=== PATIENT | female | born 1980 | race African-American/Black ===

== ENCOUNTER 2016-11-27 13:06 | Emergency (ER) | payer MEDICAID ==
--- NOTE | 2016-11-27 13:19 | ER Document Report ---
ED Medical Screen (RME) - General Stated Complaint: FELL/BACK/HIP PAIN Mode of Arrival: Ambulatory Information source: Patient Notes: pt states she fell yesterday in her kitchen landing on her back. Pt c/o low back pain. TRAVEL OUTSIDE OF THE [place] IN LAST 30 DAYS: No - Related Data Allergies/Adverse Reactions: meperidine HCl [From Demerol] Allergy (Intermediate, Verified 10/31/16 02:35) Hives Past Medical History - Past Medical History Cardiac Medical History: Reports: Hx Hypertension - Borderline Pulmonary Medical History: Reports: Hx Asthma, Hx Tuberculosis Endocrine Medical History: Reports: Hx Diabetes Mellitus Type 2, Hx Hypothyroidism Renal/ Medical History: Reports: Hx Kidney Stones GI Medical History: Reports: Hx Ulcer Past Surgical History: Reports: Hx Section - x1, Hx Gynecologic Surgery - D&C, Hx Thyroid Surgery - Thyroidectomy - Immunizations Immunizations up to date: Yes Hx Diphtheria, Pertussis, Tetanus Vaccination: Yes Physical Exam - General General appearance: Appears well, Alert - Back Back: Tender - left lower back pain
[2016-11-27] MEDS ORDERED: NAPROXEN 250 MG TABLET PO ONE (13:58)
--- NOTE | 2016-11-27 15:54 | ER Document Report ---
ED Fall - General Chief Complaint: Fall Stated Complaint: FELL/BACK/HIP PAIN Mode of Arrival: Ambulatory Information source: Patient Notes: 36-year-old Female presents to the emergency department complaining of lower back pain. Patient reports was walking in her kitchen yesterday afternoon when she slipped on wet floor landing on her left lower back. Reports initially did not have obvious injury however has noted increased pain to left mid and lower back and left hip. States pain is worse with movement and ambulation. Denies extremity weakness/numbness/tingling, saddle numbness, incontinence, fever, or urinary retention. TRAVEL OUTSIDE OF THE [place] IN LAST 30 DAYS: No - HPI Occurred: Yesterday Where: Home, Indoors Context: Slipped, Fell from standing Associated symptoms: None Location of injury/pain: Back Quality of pain: Achy Severity: Moderate Pain Level: 3 - Related data Allergies/Adverse Reactions: meperidine HCl [From Demerol] Allergy (Intermediate, Verified 11/27/16 13:20) Hives Past Medical History - General Information source: Patient - Social History Smoking Status: Never Smoker Chew tobacco use (# tins/day): No Frequency of alcohol use: None Drug Abuse: None Lives with: Family Family History: Reviewed & Not Pertinent, CAD, DM, Hypertension, Thyroid Disfunction Patient has suicidal ideation: No Patient has homicidal ideation: No - Past Medical History Cardiac Medical History: Reports: Hx Hypertension - Borderline Pulmonary Medical History: Reports: Hx Asthma, Hx Tuberculosis Endocrine Medical History: Reports: Hx Diabetes Mellitus Type 2, Hx Hypothyroidism Renal/ Medical History: Reports: Hx Kidney Stones GI Medical History: Reports: Hx Ulcer Past Surgical History: Reports: Hx Section - x1, Hx Gynecologic Surgery - D&C, Hx Thyroid Surgery - Thyroidectomy - Immunizations Immunizations up to date: Yes Hx Diphtheria, Pertussis, Tetanus Vaccination: Yes Review of Systems - Review of Systems Constitutional: No symptoms reported EENT: No symptoms reported Cardiovascular: No symptoms reported Respiratory: No symptoms reported Gastrointestinal: No symptoms reported Genitourinary: No symptoms reported Female Genitourinary: No symptoms reported Musculoskeletal: See HPI Skin: No symptoms reported Hematologic/Lymphatic: No symptoms reported Neurological/Psychological: No symptoms reported -: Yes All other systems reviewed and negative Physical Exam - Vital signs Vitals: Temp Pulse Resp BP Pulse Ox 98.0 F 69 21 H 139/76 H 99 01/07/17 13:20 11/27/16 13:20 11/27/16 13:20 11/27/16 13:20 11/27/16 13:20 Interpretation: Normal - General General appearance: Appears well, Alert In distress: None - HEENT Head: Normocephalic, Atraumatic Eyes: Normal Pupils: PERRL - Respiratory Respiratory status: No respiratory distress Chest status: Nontender Breath sounds: Normal Chest palpation: Normal - Cardiovascular Rhythm: Regular Heart sounds: Normal auscultation Murmur: No Pulses: Normal: Radial, Posterior tibial, Dorsalis pedis Normal capillary refill: Yes - Abdominal Inspection: Normal Distension: No distension Bowel sounds: Normal Tenderness: Nontender Organomegaly: No organomegaly - Back Back: Tender - Mild tenderness with palpation to left paraspinal musculature at lower thoracic and lumbar levels. Full range of motion without paresthesias or neurological deficits.. No: Normal, Nontender, Deformity/step-off, CVA tenderness, Vertebra tenderness, Scars, Scoliosis, Wounds, Other - Extremities General upper extremity: Normal inspection, Nontender, Normal color, Normal ROM , Normal strength, Normal temperature. No: Tender, Edema General lower extremity: Normal inspection, Nontender, Normal color, Normal ROM , Normal strength, Normal temperature, Normal weight bearing. No: Tender, Edema Hip: Tender - Mild tenderness to palpation to left lateral hip area. No instability, deformity, or bruising.. No: Normal, Nontender, Abrasion, Deformity, Dislocation, Ecchymosis, Instability, Laceration, Pain with ROM, Unable to bear weight, Other - Neurological Neuro grossly intact: Yes Cognition: Normal Orientation: AAOx4 [place] Coma Scale Eye Opening: Spontaneous [place] Coma Scale Verbal: Oriented [place] Coma Scale Motor: Obeys Commands [place] Coma Scale Total: 15 Speech: Normal Motor strength normal: LUE, RUE, LLE, RLE Sensory: Normal - Psychological Associated symptoms: Normal affect, Normal mood - Skin Skin Temperature: Warm Skin Moisture: Dry Skin Color: Normal Course - Re-evaluation Re-evalutation: 11/27/16 16:00 Patient hemodynamically stable, in no distress, afebrile. X-rays unremarkable. The patient presents with back pain without signs of spinal cord compression, cauda equina syndrome, infection, aneurysm, or other serious etiology. The patient is neurologically intact, independently and steadily ambulatory without paresthesias or neurological deficits. Given the extremely low risk of these diagnoses further testing and evaluation for these possibilities does not appear to be indicated at this time. Home care, follow-up with PCP, and ED return precautions discussed with patient who verbalized understanding and agrees with plan. - Vital Signs Vital signs: Temp Pulse Resp BP Pulse Ox 98.0 F 57 L 17 134/73 H 100 11/27/16 13:20 11/27/16 16:02 11/27/16 16:02 11/27/16 16:02 11/27/16 16:02 - Diagnostic Test Radiology reviewed: Image reviewed, Reports reviewed Discharge - Discharge Clinical Impression: Low back pain Qualifiers: Chronicity: acute Back pain laterality: left Sciatica presence: without sciatica Qualified Code(s): M54.5 - Low back pain Condition: Stable Disposition: HOME, SELF-CARE Additional Instructions: LOW BACK PAIN: Three out of every four people will have an episode of disabling back pain during their lifetime. Most commonly the pain is due to straining of the muscles and ligaments in the low back. Usual treatment includes: (1) Rest on a firm surface. Avoid lying on your stomach. (2) Ice pack the painful area. After a few days, gentle heat may be used intermittently to relax the area, or ice packs can be continued. (3) Medication may be needed -- muscle relaxers and antiinflammatory medicines are commonly used. (4) As the back improves, exercises are prescribed to strengthen the back and abdominal muscles. Your doctor will advise you on the proper care for your back at each stage in your recovery. You may be better in a few days -- or healing may take several weeks. If new symptoms of a "herniated disc" (radiation of pain, numbness, or tingling down the back of the leg or weakness in the leg) occur, you should be re-examined. Further testing may be necessary. ICE PACKS: Apply ice packs frequently against the painful area. Many different schedules are recommended, such as "20 minutes on, 20 minutes off" or "one hour ice, two hours rest." If you need to work, you may need to go longer between ice treatments. You should plan to have the area ice packed AT LEAST one fourth of the time. The ice should be applied over the wrap, tape, or splint, or over a layer of cloth -- not directly against the skin. Some ice bags have a built-in cloth and can be put directly on the skin. WARM PACKS: After approximately two days, apply gentle heat (such as a heating pad or hot water bottle) for about 20 to 30 minutes about every two hours -- at least four times daily. Warmth and elevation will help you make a more rapid recovery , and will ease the pain considerably. Do not use HOT heat, and never apply heat for longer than 30 minutes. The continuous heat can invisibly damage skin and muscles -- even when no burn is seen on the surface. Damaged muscles can make you MORE sore. MUSCLE RELAXERS: Muscle relaxing medications are usually prescribed for acute muscle spasm or injury to the neck and back. They are often combined with antiinflammatory pain medication for increased relief. You may stop the muscle relaxer when the pain and stiffness have improved. Start the medication again if spasms recur. Muscle relaxers may cause drowsiness, especially with the first dose. Do not operate machinery or drive while under the effects of the medication. Most muscle relaxers last up to 24 hours. Do not combine the medication with alcohol. Anti-Inflammatory Medication You have received a prescription for an antiinflammatory agent. This is an excellent, safe drug for pain control. In addition, it has potent antiinflammatory effects which are beneficial, especially in the treatment of injuries, arthritis, or tendonitis. It's best to take this medicine with food. Persons with ulcer disease or allergy to aspirin should notify their physician of this before taking this drug. Take the medication exactly as prescribed. Don't take additional doses unless instructed to do so by your doctor. If you develop wheezing, shortness of breath, hives, faintness, stomach pain, vomiting, or dark black stools, return for re-evaluation at once. FOLLOW-UP CARE: Follow-up with your primary care provider on Tuesday as discussed. Return to the Emergency Department for any worsening symptoms or concerns. Prescriptions: Methocarbamol [Robaxin 500 mg Tablet] 500 mg PO Q8HP PRN #10 tablet PRN Reason: Naproxen [Naprosyn 375 Mg Tablet] 375 mg PO BIDP PRN #10 tablet PRN Reason: Forms: Elevated Blood Pressure, Return to Work
[2016-11-27 16:05] VITALS: BP 134/73
== END 2016-11-27 16:02 | disposition home or self-care (01) ==
LOC: ER 13:06
DX: M54.5 Low back pain (principal); M54.9 Dorsalgia, unspecified; M25.552 Pain in left hip; W19.XXXA Unspecified fall, initial encounter
CPT/HCPCS: 99283; 73502; 72110; 72070; J3490

== ENCOUNTER 2017-05-10 17:39 | Emergency (ER) | payer MEDICAID ==
[2017-05-10 17:52] VITALS: BP 139/77
--- NOTE | 2017-05-10 18:32 | ER Document Report ---
ED Medical Screen (RME) - General Chief Complaint: R flank pain, burning with urination Stated Complaint: RIGHT FLANK PAIN,NAUSEA Time Seen by Provider: 05/10/17 18:25 Notes: 36-year-old female patient reports onset Tuesday morning burning with urination , then about noon developed fever of 102. Fever burning continued on Tuesday. Now she has low back pain. Mentioned possible kidney stones. She has had several abdomen and pelvis CT scans over the years that did not show stones but did show constipation. I have greeted and performed a rapid initial assessment of this patient. A comprehensive ED assessment and evaluation of the patient, analysis of test results and completion of the medical decision making process will be conducted by additional ED providers. TRAVEL OUTSIDE OF THE [place] IN LAST 30 DAYS: No - Related Data Allergies/Adverse Reactions: meperidine HCl [From Demerol] Allergy (Intermediate, Verified 11/27/16 13:20) Hives Past Medical History - Past Medical History Cardiac Medical History: Reports: Hx Hypertension - Borderline Pulmonary Medical History: Reports: Hx Asthma, Hx Tuberculosis Endocrine Medical History: Reports: Hx Diabetes Mellitus Type 2, Hx Hypothyroidism Renal/ Medical History: Reports: Hx Kidney Stones. Denies: Hx Peritoneal Dialysis GI Medical History: Reports: Hx Ulcer Past Surgical History: Reports: Hx Section - x1, Hx Gynecologic Surgery - D&C, Hx Thyroid Surgery - Thyroidectomy - Immunizations Immunizations up to date: Yes Hx Diphtheria, Pertussis, Tetanus Vaccination: Yes Physical Exam - Vital signs Vitals: Temp Pulse Resp BP Pulse Ox 98.2 F 57 L 18 139/77 H 98 05/10/17 17:47 05/10/17 17:47 05/10/17 17:47 05/10/17 17:47 05/10/17 17:47 Course - Vital Signs Vital signs: Temp Pulse Resp BP Pulse Ox 98.2 F 57 L 18 139/77 H 98 05/10/17 17:47 05/10/17 17:47 05/10/17 17:47 05/10/17 17:47 05/10/17 17:47
[2017-05-10 19:25] LABS: APPEARANCE,URINE SLIGHTLY-CLOUDY; BILIRUBIN,URINE NEGATIVE (NEGATIVE); GLUCOSE, URINE NEGATIVE (NEGATIVE); KETONES,URINE NEGATIVE (NEGATIVE); LEUKOCYTE ESTERASE,URINE TRACE (NEGATIVE); NITRITE,URINE NEGATIVE (NEGATIVE); PROTEIN,URINE NEGATIVE (NEGATIVE); URINE SPECIFIC GRAVITY 1.032
[2017-05-10] MEDS ORDERED: KETOROLAC TROMETHAMINE 60 MG/2 ML SDV IM ONE (19:28)
[2017-05-10] MEDS ORDERED: ONDANSETRON 4 MG TAB.RAPDIS PO ONE (19:30)
--- NOTE | 2017-05-10 19:32 | ER Document Report ---
HPI - HPI Patient complains to provider of: right flank pain, burning with urination Onset: Last week Onset/Duration: Gradual Quality of pain: Stabbing, Throbbing Severity: Severe Pain Level: 5 Context: Patient states she started having burning with urination and frequency on Tuesday. States she did have a fever on Tuesday and Tuesday, but none since. Patient reports nausea but no vomiting. Thinks she might have a kidney stone. Associated Symptoms: Fever, Nausea. denies: Vomiting Exacerbated by: Movement Relieved by: Denies Similar symptoms previously: Yes Recently seen / treated by doctor: No - ROS ROS below otherwise negative: Yes Systems Reviewed and Negative: Yes All other systems reviewed and negative - CONSTITUTIONAL Constitutional: REPORTS: Fever - EENT EENT: DENIES: Congestion - NEURO Neurology: DENIES: Headache - CARDIOVASCULAR Cardiovascular: DENIES: Chest pain - RESPIRATORY Respiratory: DENIES: Trouble Breathing - GASTROINTESTINAL Gastrointestinal: REPORTS: Abdominal Pain - lower abd over bladder, Nausea - URINARY Urinary: REPORTS: Dysuria, Urgency, Frequency - REPRODUCTIVE Reproductive: DENIES: : - MUSCULOSKELETAL Musculoskeletal: REPORTS: Back Pain - Flank. DENIES: Extremity pain - DERM Skin Color: Normal Skin Problems: None Past Medical History - General Information source: Patient - Social History Smoking Status: Never Smoker Frequency of alcohol use: None Drug Abuse: None Lives with: Spouse/Significant other Family History: Reviewed & Not Pertinent, CAD, DM, Hypertension, Thyroid Disfunction - Past Medical History Cardiac Medical History: Reports: Hx Hypertension - Borderline Pulmonary Medical History: Reports: Hx Asthma, Hx Tuberculosis Endocrine Medical History: Reports: Hx Diabetes Mellitus Type 2, Hx Hypothyroidism Renal/ Medical History: Reports: Hx Kidney Stones GI Medical History: Reports: Hx Ulcer Past Surgical History: Reports: Hx Section - x1, Hx Gynecologic Surgery - D&C, Hx Thyroid Surgery - Thyroidectomy - Immunizations Immunizations up to date: Yes Hx Diphtheria, Pertussis, Tetanus Vaccination: Yes Vertical Provider Document - CONSTITUTIONAL Agree With Documented VS: Yes Exam Limitations: No Limitations General Appearance: WD/WN, Mild Distress - INFECTION CONTROL TRAVEL OUTSIDE OF THE [place] IN LAST 30 DAYS: No - HEENT HEENT: Atraumatic, Normocephalic - RESPIRATORY Respiratory: Breath Sounds Normal, No Respiratory Distress O2 Sat by Pulse Oximetry: 98 - CARDIOVASCULAR Cardiovascular: Regular Rate, Regular Rhythm - GI/ABDOMEN Gastrointestinal: Abdomen Soft, Abdomen Tender - Pubic, Normal Bowel Sounds - BACK Back: CVA Tenderness-Right. negative: CVA Tenderness-Left - MUSCULOSKELETAL/EXTREMETIES Musculoskeletal/Extremeties: MAEW - NEURO Level of Consciousness: Awake, Alert, Appropriate - DERM Integumentary: Warm, Dry, No Rash Course - Re-evaluation Re-evalutation: 05/10/17 20:43 Labs were normal and discussed with patient. Patient informed a urine culture will be placed usually resulting in 3 days - Vital Signs Vital signs: Temp Pulse Resp BP Pulse Ox 98.2 F 57 L 18 139/77 H 98 05/10/17 17:47 05/10/17 17:47 05/10/17 17:47 05/10/17 17:47 05/10/17 17:47 - Laboratory Result Diagrams: 05/10/17 20:10 05/10/17 20:10 Laboratory results interpreted by me: 05/10/17 18:40 Urine Urobilinogen 2.0 H Ur Leukocyte Esterase TRACE H Discharge - Discharge Clinical Impression: Dysuria, Right flank pain Condition: Good Disposition: HOME, SELF-CARE Instructions: Toradol Injection ([facility]) Additional Instructions: Take all medications as prescribed push Fluids, you were a little dehydrated tonight tylenol or Motrin as needed for discomfort And follow-up with your primary care doctor this week for recheck urine Culture is pending, usually takes 3 days for final results Return if worsens Prescriptions: Ketorolac Tromethamine [Toradol 10 mg Tablet] 10 mg PO Q6HP PRN #20 tablet PRN Reason: Ciprofloxacin HCl [Cipro 500 mg Tablet] 500 mg PO BID #10 tablet Phenazopyridine HCl [Pyridium 200 mg Tablet] 200 mg PO TID PRN #15 tablet PRN Reason: Forms: Return to Work
[2017-05-10] MEDS ORDERED: NORMAL SALINE 1000 ML 1,000 ML IV ONE (19:45)
[2017-05-10 20:20] LABS: ABSOLUTE BASOPHILS # (AUTO) 0.1 10^3/uL (0.0-0.2); ABSOLUTE EOSINOPHILS # (AUTO) 0.2 10^3/uL (0.0-0.6); ABSOLUTE LYMPHOCYTES (AUTO) 2.4 10^3/uL (0.5-4.7); ABSOLUTE MONOCYTES (AUTO) 0.4 10^3/uL (0.1-1.4); ABSOLUTE NEUT (AUTO) 2.9 10^3/uL (1.7-8.2); BASOPHILS % (AUTO) 0.9 % (0-2); EOSINOPHILS % (AUTO) 3.5 % (0-6); HEMATOCRIT 40.8 % (36.0-47.0); HEMOGLOBIN 13.2 g/dL (12.0-15.5); HGB HCT DIFFERENCE -1.2; MEAN CORPUSCULAR HEMOGLOBIN 25.9 pg (27.0-33.4); MEAN CORPUSCULAR HGB CONC 32.4 g/dL (32.0-36.0); MEAN CORPUSCULAR VOLUME 80 fl (80-97); MONOCYTES % (AUTO) 6.8 % (3-13); RED CELL DISTRIBUTION WIDTH 13.6 % (11.5-14.0); SEGMENTED NEUTROPHILS % (AUTO) 48.8 % (42-78); WHITE BLOOD COUNT 5.9 10^3/uL (4.0-10.5)
[2017-05-10] MEDS ORDERED: CIPROFLOXACIN HCL 500 MG TABLET PO ONE (20:35)
[2017-05-10 20:37] LABS: ALANINE AMINOTRANSFERASE 23 U/L (9-52); ALBUMIN 4.1 g/dL (3.5-5.0); ALKALINE PHOSPHATASE 71 U/L (38-126); ANION GAP 13 (5-19); ASPARTATE AMINO TRANSFERASE 20 U/L (14-36); BILIRUBIN,DIRECT 0.3 mg/dL (0.0-0.4); BILIRUBIN,TOTAL 0.5 mg/dL (0.2-1.3); BLOOD UREA NITROGEN 12 mg/dL (7-20); CALCIUM 9.3 mg/dL (8.4-10.2); CARBON DIOXIDE 24 mmol/L (22-30); CHLORIDE 105 mmol/L (98-107); CREATININE RESULT 0.77 mg/dL (0.52-1.25); GLUCOSE 96 mg/dL (75-110); SODIUM 141.6 mmol/L (137-145); TOTAL PROTEIN 7.5 g/dL (6.3-8.2)
== END 2017-05-10 22:09 | disposition home or self-care (01) ==
LOC: ER 17:39
DX: R30.0 Dysuria (principal); R10.30 Lower abdominal pain, unspecified; R35.0 Frequency of micturition; R11.0 Nausea; R39.15 Urgency of urination; M54.9 Dorsalgia, unspecified; J45.909 Unspecified asthma, uncomplicated; Z87.442 Personal history of urinary calculi; Z87.19 Personal history of other diseases of the digestive system
CPT/HCPCS: 99284; 96372; 96360; 36415; 87086; 85025; 81025; 80053; 81001; J3490; J1885; S0119; J7030

== ENCOUNTER 2017-08-31 08:51 | Emergency (ER) | payer MEDICAID ==
[2017-08-31] MEDS ORDERED: LIDOCAINE 1% INJ-PF (10 MG/ML) 30 ML SDV INJ ONE (10:57)
[2017-08-31] MEDS ORDERED: ACETAMINOPHEN 325 MG TABLET PO ONE (11:30)
--- NOTE | 2017-08-31 12:07 | ER Document Report ---
ED General - General Chief Complaint: Fall Injury Stated Complaint: FALL POSSIBLE ABSCESS UNDER RIGHT ARM Time Seen by Provider: 08/31/17 10:04 Notes: Patient is a 37-year-old female presents emergency department complaining of low back pain and abscess. Patient states that she has had low back pain ever since she sustained a fall at [facility] last evening. Patient states that she slipped and landed on her bottom. States she woke up this morning with right lower back pain with right sciatica. She denies any urinary/stool incontinence , saddle anesthesia. Been able to ambulate without any assistance or difficulty. States she has not taken anything for pain. Regarding the abscess. Patient has a right axilla abscess that she states she has had for about a week that has been tender to touch otherwise she denies any fevers, chills, drainage. States she does have a history of hidradenitis supprativa TRAVEL OUTSIDE OF THE [place] IN LAST 30 DAYS: No - Related Data Allergies/Adverse Reactions: meperidine HCl [From Demerol] Allergy (Intermediate, Verified 08/31/17 09:11) Tinoes Past Medical History - Social History Smoking Status: Never Smoker Frequency of alcohol use: None Drug Abuse: None Family History: Reviewed & Not Pertinent, CAD, DM, Hypertension, Thyroid Disfunction - Past Medical History Cardiac Medical History: Reports: Hx Hypertension - Borderline Pulmonary Medical History: Reports: Hx Asthma, Hx Tuberculosis Endocrine Medical History: Reports: Hx Diabetes Mellitus Type 2, Hx Hypothyroidism Renal/ Medical History: Reports: Hx Kidney Stones. Denies: Hx Peritoneal Dialysis GI Medical History: Reports: Hx Ulcer Past Surgical History: Reports: Hx Section - x1, Hx Gynecologic Surgery - D&C, Hx Thyroid Surgery - Thyroidectomy - Immunizations Immunizations up to date: Yes Hx Diphtheria, Pertussis, Tetanus Vaccination: Yes Review of Systems - Review of Systems Constitutional: No symptoms reported Cardiovascular: No symptoms reported Respiratory: No symptoms reported Musculoskeletal: See HPI Skin: See HPI Neurological/Psychological: No symptoms reported -: Yes All other systems reviewed and negative Physical Exam - Vital signs Vitals: Temp Pulse Resp BP Pulse Ox 98.1 F 59 L 15 136/89 H 100 08/31/17 09:08 08/31/17 09:08 08/31/17 09:08 08/31/17 09:08 08/31/17 09:08 - Notes Notes: PHYSICAL EXAM GENERAL: Alert, interacts well. HEAD: Normocephalic, atraumatic. LUNGS: Clear to auscultation bilaterally, no wheezes, rales, or rhonchi. No respiratory distress. HEART: Regular rate and rhythm. No murmurs, gallops, or rubs. ABDOMEN: Soft, nondistended, nontender. No guarding, rebound, or rigidity.. Bowel sounds present in all 4 quadrants. EXTREMITIES: Moves all 4 extremities spontaneously. No edema, radial and dorsalis pedis pulses 2/4 bilaterally. No cyanosis. Back: Tenderness to palpation over the right paramusculature of the lumbar spine. No evidence of spinous process tenderness, deformities, step-offs. Gait stable. NEUROLOGICAL: Alert and oriented x4. Normal speech. PSYCH: Normal affect, normal mood. SKIN: Warm, dry, normal turgor. No rashes. .right axilla with a 1 cm inflamed area that is tender to touch with central fluctuance, No surrounding cellulitis Course - Re-evaluation Re-evalutation: 08/31/17 10:30 The patient presents with low back pain without signs of spinal cord compression , cauda equina syndrome, infection, aneurysm, or other serious etiology. The patient is neurologically intact. Given the extremely low risk of these diagnoses further testing and evaluation for these possibilities does not appear to be indicated at this time. The patient has been instructed to return if the symptoms worsen or change in any way. Area of the right axilla with I&D at the bedside for minimal material removed. Patient initiated on Bactrim and to follow-up with primary care. Patient agrees with plan - Vital Signs Vital signs: Temp Pulse Resp BP Pulse Ox 98.3 F 55 L 18 132/75 H 100 08/31/17 12:46 08/31/17 12:46 08/31/17 12:46 08/31/17 12:46 08/31/17 12:46 - Diagnostic Test Radiology reviewed: Image reviewed, Reports reviewed Discharge - Discharge Clinical Impression: Abscess Fall Qualifiers: Encounter type: initial encounter Qualified Code(s): W19.XXXA - Unspecified fall, initial encounter Condition: Good Disposition: HOME, SELF-CARE Instructions: Abscess ([facility]), Post Incision and Drainage, Trimethoprim-Sulfa ( [facility]) Additional Instructions: LOW BACK PAIN: Three out of every four people will have an episode of disabling back pain during their lifetime. Most commonly the pain is due to straining of the muscles and ligaments in the low back. Usual treatment includes: (1) Rest on a firm surface. Avoid lying on your stomach. (2) Ice pack the painful area. After a few days, gentle heat may be used intermittently to relax the area, or ice packs can be continued. (3) Medication may be needed -- muscle relaxers and antiinflammatory medicines are commonly used. (4) As the back improves, exercises are prescribed to strengthen the back and abdominal muscles. Your doctor will advise you on the proper care for your back at each stage in your recovery. You may be better in a few days -- or healing may take several weeks. If new symptoms of a "herniated disc" (radiation of pain, numbness, or tingling down the back of the leg or weakness in the leg) occur, you should be re-examined. Further testing may be necessary. MUSCLE RELAXERS: Muscle relaxing medications are usually prescribed for acute muscle spasm or injury to the neck and back. They are often combined with antiinflammatory pain medication for increased relief. You may stop the muscle relaxer when the pain and stiffness have improved. Start the medication again if spasms recur. Muscle relaxers may cause drowsiness, especially with the first dose. Do not operate machinery or drive while under the effects of the medication. Most muscle relaxers last up to 24 hours. Do not combine the medication with alcohol. ICE PACKS: Apply ice packs frequently against the painful area. Many different schedules are recommended, such as "20 minutes on, 20 minutes off" or "one hour ice, two hours rest." If you need to work, you may need to go longer between ice treatments. You should plan to have the area ice packed AT LEAST one fourth of the time. The ice should be applied over the wrap, tape, or splint, or over a layer of cloth -- not directly against the skin. Some ice bags have a built-in cloth and can be put directly on the skin. WARM PACKS: After approximately two days, apply gentle heat (such as a heating pad or hot water bottle) for about 20 to 30 minutes about every two hours -- at least four times daily. Warmth and elevation will help you make a more rapid recovery , and will ease the pain considerably. Do not use HOT heat, and never apply heat for longer than 30 minutes. The continuous heat can invisibly damage skin and muscles -- even when no burn is seen on the surface. Damaged muscles can make you MORE sore. FOLLOW-UP CARE: If you have been referred to a physician for follow-up care, call the physician s office for an appointment as you were instructed or within the next two days. If you experience worsening or a significant change in your symptoms, notify the physician immediately or return to the Emergency Department at any time for re-evaluation. Prescriptions: Cyclobenzaprine HCl [Flexeril 10 mg Tablet] 10 mg PO TIDP PRN #15 tab PRN Reason: Ibuprofen [Motrin 800 mg Tablet] 800 mg PO Q8H PRN #30 tab PRN Reason: Sulfamethoxazole/Trimethoprim [Bactrim Ds Tablet] 1 each PO BID #10 tablet Forms: Special Work Note, Return to Work
--- NOTE | 2017-08-31 12:22 | RADIOLOGY REPORT (SQ) ---
EXAM DESCRIPTION: L SPINE WHOLE COMPLETED DATE/TIME: 08/31/2017 11:58 am REASON FOR STUDY: fall COMPARISON: 11/27/2016 NUMBER OF VIEWS: Five views including obliques. TECHNIQUE: AP, lateral, oblique, and sacral radiographic images acquired of the lumbar spine. LIMITATIONS: None. FINDINGS: MINERALIZATION: Normal. SEGMENTATION: Normal. No transitional anatomy. ALIGNMENT: Normal. VERTEBRAE: Maintained height. No fracture or worrisome bone lesion. DISCS: The disc spaces are fairly well maintained. There are some minimal marginal osteophytes. POSTERIOR ELEMENTS: Pedicles and facets are intact. No pars defect or posterior arch defects. HARDWARE: None in the spine. PARASPINAL SOFT TISSUES: Normal. PELVIS: Intact as visualized. No fractures or worrisome bone lesions. SI joints intact. OTHER: No other significant finding. IMPRESSION: No acute abnormality in the lumbosacral spine. Mild spondylosis. TECHNICAL DOCUMENTATION: JOB ID: [id number] [employer]- All Rights Reserved
[2017-08-31 12:48] VITALS: BP 132/75
== END 2017-08-31 12:47 | disposition home or self-care (01) ==
LOC: ER 08:51
PROC: 0H9BXZZ Drainage of Right Upper Arm Skin, External Approach (ICD-10-PCS; principal; 2017-08-31)
DX: L02.413 Cutaneous abscess of right upper limb (principal); M54.5 Low back pain; W19.XXXA Unspecified fall, initial encounter
CPT/HCPCS: 99283; 72110; 10060; J3490 ×2

== ENCOUNTER 2017-11-21 15:16 | Emergency (ER) | payer MEDICAID ==
[2017-11-21 15:27] VITALS: BP 144/91
--- NOTE | 2017-11-21 15:57 | ER Document Report ---
HPI - HPI Patient complains to provider of: abscess Pain Level: 5 Context: Patient is a 37-year-old female presents emergency department with left axilla swelling and tenderness for the past 2 days. Patient admits to history of abscesses and is due to follow-up with surgery as an outpatient. She denies any fevers or chills or active drainage. - REPRODUCTIVE Reproductive: DENIES: : Past Medical History - Social History Smoking Status: Never Smoker Family History: Reviewed & Not Pertinent, CAD, DM, Hypertension, Thyroid Disfunction - Past Medical History Cardiac Medical History: Reports: Hx Hypertension - Borderline Pulmonary Medical History: Reports: Hx Asthma, Hx Tuberculosis Endocrine Medical History: Reports: Hx Diabetes Mellitus Type 2, Hx Hypothyroidism Renal/ Medical History: Reports: Hx Kidney Stones. Denies: Hx Peritoneal Dialysis GI Medical History: Reports: Hx Ulcer Past Surgical History: Reports: Hx Section - x1, Hx Gynecologic Surgery - D&C, Hx Thyroid Surgery - Thyroidectomy - Immunizations Immunizations up to date: Yes Hx Diphtheria, Pertussis, Tetanus Vaccination: Yes Vertical Provider Document - CONSTITUTIONAL Agree With Documented VS: Yes Notes: PHYSICAL EXAM GENERAL: Alert, interacts well. EXTREMITIES: Moves all 4 extremities spontaneously. No edema, radial and dorsalis pedis pulses 2/4 bilaterally. No cyanosis. NEUROLOGICAL: Alert and oriented x4. Normal speech. PSYCH: Normal affect, normal mood. SKIN: Warm, dry, normal turgor. No rashes left axilla with a palpable swollen tender area without any overlying induration or erythema measuring approximately 2 cm in diameter. - INFECTION CONTROL TRAVEL OUTSIDE OF THE [place] IN LAST 30 DAYS: No - RESPIRATORY O2 Sat by Pulse Oximetry: 100 Course - Re-evaluation Re-evalutation: 11/21/17 16:42 Patient is a 37-year-old female is hemodynamically stable, no acute distress and afebrile. Patient does have a history of type 2 diabetes. Incision and drainage was done at the bedside for approximately 3 cc of purulent fluid. Patient initiated on antibiotic and told to follow-up with primary care and to follow through on her referral to surgery For outpatient evaluation of hidradenitis - Vital Signs Vital signs: Temp Pulse Resp BP Pulse Ox 97.5 F 78 18 144/91 H 100 11/21/17 15:25 11/21/17 15:25 11/21/17 15:25 11/21/17 15:25 11/21/17 15:25 Discharge - Discharge Clinical Impression: Abscess Condition: Good Disposition: HOME, SELF-CARE Instructions: Abscess ([facility]), Cephalexin ([facility]), Post Incision and Drainage Prescriptions: Cephalexin Monohydrate [Keflex 500 mg Capsule] 500 mg PO Q6H 5 Days capsule Referrals: OLEKSANDR BUSTAMANTE MD [ACTIVE STAFF] - Follow up as needed
[2017-11-21] MEDS ORDERED: CEPHALEXIN 500 MG CAPSULE PO ONE (16:43)
== END 2017-11-21 17:11 | disposition home or self-care (01) ==
LOC: ER 15:16
DX: L02.412 Cutaneous abscess of left axilla (principal); E11.9 Type 2 diabetes mellitus without complications; J45.909 Unspecified asthma, uncomplicated
CPT/HCPCS: 99283

== ENCOUNTER 2017-11-28 16:52 | Emergency (ER) | payer MEDICAID ==
[2017-11-28 18:26] LABS: ABSOLUTE EOSINOPHILS # (AUTO) 0.1 10^3/uL (0.0-0.6); ABSOLUTE LYMPHOCYTES (AUTO) 2.7 10^3/uL (0.5-4.7); ABSOLUTE MONOCYTES (AUTO) 0.7 10^3/uL (0.1-1.4); ABSOLUTE NEUT (AUTO) 4.5 10^3/uL (1.7-8.2); APPEARANCE,URINE CLEAR; BASOPHILS % (AUTO) 0.6 % (0-2); BILIRUBIN,URINE NEGATIVE (NEGATIVE); COLOR,URINE YELLOW; EOSINOPHILS % (AUTO) 1.1 % (0-6); GLUCOSE, URINE NEGATIVE (NEGATIVE); KETONES,URINE NEGATIVE (NEGATIVE); LEUKOCYTE ESTERASE,URINE TRACE (NEGATIVE); LYMPHOCYTES % (AUTO) 33.7 % (13-45); MEAN CORPUSCULAR HEMOGLOBIN 26.3 pg (27.0-33.4); MEAN CORPUSCULAR HGB CONC 32.5 g/dL (32.0-36.0); MEAN CORPUSCULAR VOLUME 81 fl (80-97); MONOCYTES % (AUTO) 8.9 % (3-13); NITRITE,URINE NEGATIVE (NEGATIVE); PLATELET COUNT 280 10^3/uL (150-450); PROTEIN,URINE NEGATIVE (NEGATIVE); RED BLOOD COUNT 5.33 10^6/uL (3.72-5.28); RED CELL DISTRIBUTION WIDTH 13.1 % (11.5-14.0); SEGMENTED NEUTROPHILS % (AUTO) 55.7 % (42-78); TOTAL CELLS COUNTED % (AUTO) 100 %; URINE SPECIFIC GRAVITY 1.013; UROBILINOGEN,URINE NEGATIVE mg/dL (<2.0)
[2017-11-28 18:41] LABS: ALANINE AMINOTRANSFERASE 29 U/L (9-52); ALBUMIN 4.6 g/dL (3.5-5.0); ALKALINE PHOSPHATASE 74 U/L (38-126); ANION GAP 12 (5-19); ASPARTATE AMINO TRANSFERASE 18 U/L (14-36); BILIRUBIN,DIRECT 0.2 mg/dL (0.0-0.4); BILIRUBIN,TOTAL 0.3 mg/dL (0.2-1.3); BLOOD UREA NITROGEN 10 mg/dL (7-20); CALCIUM 10.2 mg/dL (8.4-10.2); CARBON DIOXIDE 31 mmol/L (22-30); CHLORIDE 100 mmol/L (98-107); GLUCOSE 82 mg/dL (75-110); POTASSIUM 4.3 mmol/L (3.6-5.0); SODIUM 142.8 mmol/L (137-145); TOTAL PROTEIN 7.8 g/dL (6.3-8.2)
--- NOTE | 2017-11-28 19:21 | ER Document Report ---
ED Cardiac - General Chief Complaint: Chest Pain Stated Complaint: CHEST PAIN Time Seen by Provider: 11/28/17 17:42 Mode of Arrival: Ambulatory Information source: Patient Notes: Patient states that she is having some substernal chest pain. It is sharp. It lasts 5-10 minutes at a time. She states it is worse with movement and better with rest. There is no sniffing and radiation. No nausea or significant shortness of breath. No cough cold or congestion. She denies any significant family history. She denies any current hormone use. She is not a smoker. She has no history of hypertension. She has no previous cardiac evaluation. TRAVEL OUTSIDE OF THE [place] IN LAST 30 DAYS: No - Related Data Allergies/Adverse Reactions: meperidine HCl [From Demerol] Allergy (Intermediate, Verified 08/31/17 09:11) Hives Past Medical History - Social History Smoking Status: Never Smoker Frequency of alcohol use: Occasional Drug Abuse: None Lives with: Family Family History: Reviewed & Not Pertinent, CAD, DM, Hypertension, Thyroid Disfunction Patient has suicidal ideation: No Patient has homicidal ideation: No - Past Medical History Cardiac Medical History: Reports: Hx Hypertension - Borderline Pulmonary Medical History: Reports: Hx Asthma, Hx Tuberculosis Endocrine Medical History: Reports: Hx Diabetes Mellitus Type 2, Hx Hypothyroidism Renal/ Medical History: Reports: Hx Kidney Stones. Denies: Hx Peritoneal Dialysis GI Medical History: Reports: Hx Ulcer Past Surgical History: Reports: Hx Section - x1, Hx Gynecologic Surgery - D&C, Hx Thyroid Surgery - Thyroidectomy - Immunizations Immunizations up to date: Yes Hx Diphtheria, Pertussis, Tetanus Vaccination: Yes Review of Systems - Review of Systems Constitutional: denies: Chills, Fever Cardiovascular: Chest pain. denies: Palpitations Respiratory: denies: Cough, Short of breath Gastrointestinal: denies: Diarrhea, Vomiting -: Yes All other systems reviewed and negative Physical Exam - Vital signs Vitals: Temp Pulse Resp BP Pulse Ox 97.8 F 77 18 142/87 H 98 11/28/17 17:12 11/28/17 17:12 11/28/17 17:12 11/28/17 17:12 11/28/17 17:12 Interpretation: Hypertensive - General General appearance: Appears well, Alert - HEENT Head: Normocephalic, Atraumatic Eyes: Normal Pupils: PERRL - Respiratory Respiratory status: No respiratory distress Chest status: Nontender Breath sounds: Normal Chest palpation: Normal - Cardiovascular Rhythm: Regular Heart sounds: Normal auscultation Murmur: No - Abdominal Inspection: Normal Distension: No distension Bowel sounds: Normal Tenderness: Nontender Organomegaly: No organomegaly - Back Back: Normal, Nontender - Extremities General upper extremity: Normal inspection, Nontender, Normal color, Normal ROM , Normal temperature General lower extremity: Normal inspection, Nontender, Normal color, Normal ROM , Normal temperature, Normal weight bearing. No: Carina's sign - Neurological Neuro grossly intact: Yes Cognition: Normal Orientation: AAOx4 [place] Coma Scale Eye Opening: Spontaneous [place] Coma Scale Verbal: Oriented [place] Coma Scale Motor: Obeys Commands Valencia Coma Scale Total: 15 Speech: Normal Motor strength normal: LUE, RUE, LLE, RLE Sensory: Normal - Psychological Associated symptoms: Normal affect, Normal mood - Skin Skin Temperature: Warm Skin Moisture: Dry Skin Color: Normal Course - Re-evaluation Re-evalutation: 11/28/17 19:19 HEART scpre of 2. will rec outpt follow up - Vital Signs Vital signs: Temp Pulse Resp BP Pulse Ox 97.8 F 77 18 142/87 H 98 11/28/17 17:12 11/28/17 17:12 11/28/17 17:12 11/28/17 17:12 11/28/17 17:12 - Laboratory Result Diagrams: 11/28/17 17:50 11/28/17 17:50 Laboratory results interpreted by me: 11/28/17 11/28/17 11/28/17 17:50 17:50 17:50 RBC 5.33 H MCH 26.3 L Carbon Dioxide 31 H Ur Leukocyte Esterase TRACE H - EKG Interpretation by Az EKG shows normal: Sinus rhythm Rate: Normal Rhythm: NSR Sheridan/QRS: No: Right axis deviation When compared to previous EKG there are: Changes noted - some new t wave inversion Discharge - Discharge Clinical Impression: Acute chest pain Condition: Stable Disposition: HOME, SELF-CARE Instructions: Chest Pain of Unclear Cause ([facility]) Additional Instructions: Your blood pressure is elevated. Please have this rechecked within 1 week by your doctor. Your EKG has some nonspecific changes since your previous EKG. There are no other findings that would warrant a further emergency department or inpatient evaluation. However it is recommended that you follow-up with your family physician or a manager site as an outpatient and discuss a cardiac stress test with either your primary care provider or the manager site. Forms: Elevated Blood Pressure, Return to Work Referrals: NOLAN CHUNG MD [ACTIVE STAFF] - Follow up in 3-5 days
[2017-11-28 19:46] VITALS: BP 124/73
--- NOTE | 2017-11-29 06:53 | EKG REPORT ---
SEVERITY:- ABNORMAL ECG - SINUS RHYTHM BORDERLINE LEFT AXIS DEVIATION NONSPECIFIC T ABNORMALITIES, ANTERIOR LEADS , NEW SINCE 08/23/16 EKG : Confirmed by: Kendell Camilo MD 29-Nov-2017 06:52:49
== END 2017-11-28 19:50 | disposition home or self-care (01) ==
LOC: ER 16:52
DX: R07.9 Chest pain, unspecified (principal); E11.9 Type 2 diabetes mellitus without complications; E03.9 Hypothyroidism, unspecified; Z87.442 Personal history of urinary calculi
CPT/HCPCS: 36415; 80053; 81001; 81025; 84484; 85025; 93005; 93010; 99285

== ENCOUNTER → 2017-12-06 | Outpatient (CLI) | payer MEDICAID ==
[2017-12-07 08:14] LABS: CHOLESTEROL 163.61 mg/dL (0-200); TRIGLYCERIDES 48 mg/dL (<150)
[2017-12-07 08:30] LABS: DIRECT LDL 94 mg/dL (<100)
== END ==
LOC: LAB 12:48
PROVIDERS: ATTEND Internal Medicine
DX: Z79.899 Other long term (current) drug therapy (principal); E78.5 Hyperlipidemia, unspecified
CPT/HCPCS: 36415; 80061

== ENCOUNTER → 2017-12-13 | Outpatient (CLI) | payer MEDICAID ==
--- NOTE | 2017-12-16 12:45 | XCELERA REPORT ---
[address] [address] Transthoracic Echocardiogram Report Name: WES PINO Age: 37 yrs Gender: Female : 1980 Patient Status: Outpatient Patient Location: Study Date: 12/13/2017 08:03 AM Height: 67 in Weight: 222 lb BSA: 2.1 m2 Procedure: A two-dimensional transthoracic echocardiogram with color flow Doppler was performed. Study Quality: Fair. Reason For Study: CHEST PAIN History: CHEST PAIN. Ordering Physician: MACEY CHUNG Performed By: Anika Alvarenga Interpretation Summary The left ventricle is normal in size. There is normal left ventricular wall thickness. LV EF is > than 65% Left ventricular systolic function is normal. Doppler measurements suggest normal left ventricular diastolic function The left ventricular wall motion is normal. There is no thrombus. The right ventricle is normal in size and function. The right atrium is normal. The left atrial size is normal. The interatrial septum is intact with no evidence for an atrial septal defect. There is no evidence of mitral valve prolapse. There is no vegetation seen on the mitral valve. There is no mitral valve stenosis. There is a trace amount of mitral regurgitation There is no aortic valve stenosis There is no LVOT obstruction. No aortic regurgitation is present. There is no tricuspid stenosis. There is a trace amount of tricuspid regurgitation Right ventricular systolic pressure is normal. RVBSP is 11 mm of Hg ,with RA mean of 5. There is no pulmonic valvular stenosis. There is no pulmonic valvular regurgitation. There is no pericardial effusion. MMode/2D Measurements & Calculations RVDd: 3.3 cm LVIDd: 5.1 cm FS: 43.5 % Ao root diam: 2.4 cm IVSd: 0.87 cm LVIDs: 2.9 cm EDV(Teich): 124.2 ml LVPWd: 0.87 cmESV(Teich): 31.9 ml Ao root area: 4.6 cm2 EF(Teich): 74.3 % LVOT diam: 2.2 cm LVOT area: 3.7 cm2 Doppler Measurements & Calculations MV E max rehana: MV dec slope: Ao V2 max: LV V1 max P.4 cm/sec 692.9 cm/sec2 133.7 cm/sec 5.0 mmHg MV A max rehana: MV dec time: Ao max PG: LV V1 max: 83.5 cm/sec 0.16 sec 7.1 mmHg 112.0 cm/sec MV E/A: 1.3 JOSEFINA(V,D): 3.1 cm2 PA V2 max: TR max rehana: 95.7 cm/sec 118.6 cm/sec PA max P.7 mmHgTR max P.6 mmHg Left Ventricle The left ventricle is normal in size. There is normal left ventricular wall thickness. LV EF is > than 65%. Left ventricular systolic function is normal. Doppler measurements suggest normal left ventricular diastolic function. The left ventricular wall motion is normal. There is no thrombus. There is no ventricular septal defect visualized. Right Ventricle The right ventricle is normal in size and function. Atria The right atrium is normal. The left atrial size is normal. The interatrial septum is intact with no evidence for an atrial septal defect. Mitral Valve There is no evidence of mitral valve prolapse. There is no vegetation seen on the mitral valve. There is no mitral valve stenosis. There is a trace amount of mitral regurgitation. Aortic Valve There is no aortic valvular vegetation. There is no aortic valve stenosis. There is no LVOT obstruction. No aortic regurgitation is present. Tricuspid Valve There is no tricuspid stenosis. There is a trace amount of tricuspid regurgitation. Right ventricular systolic pressure is normal. RVBSP is 11 mm of Hg ,with RA mean of 5. Pulmonic Valve There is no pulmonic valvular stenosis. There is no pulmonic valvular regurgitation. Great Vessels The aortic root is normal size. Effusions There is no pericardial effusion. : MACEY CHUNG > Macey Chung
== END ==
LOC: SP 07:51
PROVIDERS: ATTEND Specialist
DX: R07.9 Chest pain, unspecified (principal)
CPT/HCPCS: 93306

== ENCOUNTER 2018-04-28 15:12 | Emergency (ER) | payer MEDICAID ==
[2018-04-28 15:17] VITALS: BP 132/87
[2018-04-28] MEDS ORDERED: LIDOCAINE 2% VISCOUS SOLN 20 ML UDCUP PO ONE (15:30)
[2018-04-28] MEDS ORDERED: LIDOCAINE 1% INJ-PF (10 MG/ML) 30 ML SDV INJ ONE (15:32)
--- NOTE | 2018-04-28 15:39 | ER Document Report ---
ED Oral Problem - General Chief Complaint: Toothache Stated Complaint: MOUTH PAIN Time Seen by Provider: 04/28/18 15:24 Mode of Arrival: Ambulatory Information source: Patient Notes: 37-year-old female presents to ED for complaint of pain and swelling to the right side of her mouth 5 days. States she was seen by dentist and placed on Penicillin VK on Tuesday. She states that the swelling is gone down some but it is still pretty swollen and she has to work and she was to make sure she is not to pass out or if she needs IV antibiotics. She is alert and oriented speaking in full sentences respirations regular and unlabored and walking with a even steady gait. TRAVEL OUTSIDE OF THE U.S. IN LAST 30 DAYS: No - HPI Patient complains to provider of: Swelling of face, Swelling of jaw, Toothache Onset: Last week Quality of pain: Achy, Sharp Severity: Moderate Pain Level: 2 Swollen jaw/face: Mild Associated symptoms: Jaw pain, Toothache, Other - swelling to face and jaw Worsened by: Nothing Relieved by: Nothing Similar symptoms previously: Yes Recently seen / treated by doctor/dentist: Yes - Related Data Allergies/Adverse Reactions: meperidine HCl [From Demerol] Allergy (Intermediate, Verified 04/28/18 15:13) Hives Past Medical History - General Information source: Patient - Social History Smoking Status: Never Smoker Cigarette use (# per day): No Chew tobacco use (# tins/day): No Smoking Education Provided: No Frequency of alcohol use: Rare Drug Abuse: None Occupation: [employer] Lives with: Other - with children Family History: Reviewed & Not Pertinent, CAD, DM, Hypertension, Thyroid Disfunction Patient has suicidal ideation: No Patient has homicidal ideation: No - Past Medical History Cardiac Medical History: Reports: Hx Hypertension - Borderline Pulmonary Medical History: Reports: Hx Asthma, Hx Tuberculosis EENT Medical History: Reports: None Neurological Medical History: Reports: None Endocrine Medical History: Reports: Hx Diabetes Mellitus Type 2 - pre, Hx Hypothyroidism Renal/ Medical History: Reports: Hx Kidney Stones Malignancy Medical History: Reports: None GI Medical History: Reports: Hx Ulcer Musculoskeltal Medical History: Reports None Skin Medical History: Reports None Psychiatric Medical History: Reports: None Traumatic Medical History: Reports: None Infectious Medical History: Reports: None Past Surgical History: Reports: Hx Section - x1, Hx Gynecologic Surgery - D&C, Hx Thyroid Surgery - Thyroidectomy - Immunizations Immunizations up to date: Yes Hx Diphtheria, Pertussis, Tetanus Vaccination: Yes Review of Systems - Review of Systems Constitutional: No symptoms reported EENT: Mouth pain, Mouth swelling, Dental problem Cardiovascular: No symptoms reported Respiratory: No symptoms reported Gastrointestinal: No symptoms reported Genitourinary: No symptoms reported Female Genitourinary: No symptoms reported Musculoskeletal: No symptoms reported Skin: No symptoms reported Hematologic/Lymphatic: No symptoms reported Neurological/Psychological: No symptoms reported -: Yes All other systems reviewed and negative Physical Exam - Vital signs Vitals: Temp Pulse Resp BP Pulse Ox 98.6 F 75 16 132/87 H 100 04/28/18 15:16 04/28/18 15:16 04/28/18 15:16 04/28/18 15:16 04/28/18 15:16 Interpretation: Normal - General General appearance: Appears well, Alert - HEENT Head: Normocephalic, Atraumatic Eyes: Normal Pupils: PERRL Ears: Normal External canal: Normal Tympanic membrane: Normal Sinus: Normal Nasal: Normal Mouth/Lips: Caries Mucous membranes: Normal Teeth diagram: 1 - Abscess behind and around between the teeth Pharynx: Normal Neck: Anterior cervical chain - Respiratory Respiratory status: No respiratory distress Chest status: Nontender Breath sounds: Normal Chest palpation: Normal - Cardiovascular Rhythm: Regular Heart sounds: Normal auscultation Murmur: No - Abdominal Inspection: Normal Distension: No distension Bowel sounds: Normal Tenderness: Nontender Organomegaly: No organomegaly - Back Back: Normal, Nontender - Extremities General upper extremity: Normal inspection, Nontender, Normal color, Normal ROM , Normal temperature General lower extremity: Normal inspection, Nontender, Normal color, Normal ROM , Normal temperature, Normal weight bearing. No: Carina's sign - Neurological Neuro grossly intact: Yes Cognition: Normal Orientation: AAOx4 [place] Coma Scale Eye Opening: Spontaneous [place] Coma Scale Verbal: Oriented [place] Coma Scale Motor: Obeys Commands [place] Coma Scale Total: 15 Speech: Normal Motor strength normal: LUE, RUE, LLE, RLE Sensory: Normal - Psychological Associated symptoms: Normal affect, Normal mood - Skin Skin Temperature: Warm Skin Moisture: Dry Skin Color: Normal Course - Re-evaluation Re-evalutation: 04/28/18 15:53 Viscous lidocaine applied to the dental abscess, the area was then I indeed with a 18-gauge needle and 1% lidocaine. Large amount of purulent drainage return. Patient gargled multiple times with warm water to remove the purulent drainage. Patient states she felt much better after the I&D. After performing a Medical Screening Examination, I estimate there is LOW risk for a DEEP SPACE INFECTION (e.g., JAS'S ANGINA OR RETROPHARYNGEAL ABSCESS), MENINGITIS, INTRACRANIAL HEMORRHAGE, or AIRWAY COMPROMISE, thus I consider the discharge disposition reasonable. Also, there is no evidence or peritonitis, sepsis, or toxicity. I have reevaluated this patient multiple times and no significant life threatening changes are noted. The patient and I have discussed the diagnosis and risks, and we agree with discharging home with close follow-up with the understanding that symptoms and presentations can change. We also discussed returning to the Emergency Department immediately if new or worsening symptoms occur. We have discussed the symptoms which are most concerning (e.g., changing or worsening pain, trouble swallowing or breathing, neck stiffness or fever) that necessitate immediate return. - Vital Signs Vital signs: Temp Pulse Resp BP Pulse Ox 98.6 F 75 16 132/87 H 100 04/28/18 15:16 04/28/18 15:16 04/28/18 15:16 04/28/18 15:16 04/28/18 15:16 Procedures - Incision and Drainage Right lower back jaw Time completed: 15:55 Type: Simple Anesthetic type: 1% Lidocaine mL's of anesthetic: 2 Blade size: Other - 18 gauge needle Incision Method: Incision made with needle Amount/type of drainage: Large amount of purulent drainage Discharge - Discharge Clinical Impression: Dental abscess Condition: Stable Disposition: HOME, SELF-CARE Additional Instructions: TOOTHACHE: Your pain is due to dental decay. The tooth must be repaired in order for you to feel better. You will, therefore, be referred to a dentist. We do not have dentists on the staff at [facility]. Severe swelling or drainage around a tooth usually means a dental abscess. This also requires evaluation and treatment by the dentist, but antibiotics may be prescribed while awaiting dental treatment. You should be rechecked immediately if you develop major swelling of the face, increasing pain, a lump in the jaw or gums, headache, difficulty swallowing, or fever. PENICILLIN V K: Continue with Penicillin VK You have been given a prescription for Penicillin VK. Your physician has determined that this is the best antibiotic for your condition. Pen VK can be taken with meals, however more of the antibiotic gets into the bloodstream if it's taken on an empty stomach. Penicillin usually has no side effects. However, allergy to penicillins is common. If you have had an allergic reaction to any drug of the penicillin family, you should never take any other penicillin. Notify your doctor at once if you develop hives, itching, swelling, faintness, or shortness of breath. The dental abscess was I indeed with a 18-gauge needle. You did gargled with some warm water. Please use some salt and soda solution at home to gargle to further reduce this abscess. Keep your dental appointment for the treatment of your toothache and continue your Penicillin VK as prescribed. FOLLOW-UP CARE: You have been referred for follow-up care to the dentists listed below. Call the dentists office for an appointment as you were instructed or within the next two days. If you experience worsening or a significant change in your symptoms, notify the physician immediately or return to the Emergency Department at any time for re-evaluation. [facility] [address] [place], [place] [facility] [address] [place] [address] [facility] [address] [facility] [address] [facility] [place] [facility] [address] [email or web address] [address] [place] [address] Tuesday- 8:00am to 5:00 pm Will see patients from other [facility]. Charges based on income and family size and accepts Medicare, Medicaid, and Insurances Will pull molars [facility], [facility] [id number] Hours of Operation 8:00 am - 4:30 pm weekdays The following dental offices accept Medicaid: [facility] Dr. Samaniego Dr. Mcconnell Dr. Heaton Dr. Gong Kurtis Bus[place], [place], and Yann oral surgery Dr. Navarrete ([place]) Dr. Sabillon ([place]) [facility] Drs. Yee ([place]) Dr. Lawrence ([place]) [facility] Dr. Foster ([place]) Drs. Pulido and ([place]) Medicaid Care Line Forms: Elevated Blood Pressure, Return to Work Referrals: NOLAN CHUNG MD [ACTIVE STAFF] - Follow up as needed
== END 2018-04-28 15:58 | disposition home or self-care (01) ==
LOC: ER 15:12
PROC: 0C96XZZ Drainage of Lower Gingiva, External Approach (ICD-10-PCS; principal; 2018-04-28)
DX: K04.7 Periapical abscess without sinus (principal); R68.84 Jaw pain
CPT/HCPCS: 99282; 41800; J3490 ×2

== ENCOUNTER 2018-05-09 20:27 | Emergency (ER) | payer MEDICAID ==
[2018-05-09] MEDS ORDERED: METOCLOPRAMIDE HCL ORAL SOLN 10 MG/10 ML UDCUP PO ONE (21:18)
[2018-05-09] MEDS ORDERED: LIDOCAINE 2% VISCOUS SOLN 20 ML UDCUP PO ONE (21:18)
[2018-05-09] MEDS ORDERED: MAG HYDROX/AL HYDROX/SIMETH SUSP 30 ML UDCUP PO ONE (21:18)
--- NOTE | 2018-05-09 21:18 | ER Document Report ---
ED General - General Chief Complaint: Blood Pressure Problem Stated Complaint: BLOOD PRESSURE ISSUES Time Seen by Provider: 05/09/18 21:17 TRAVEL OUTSIDE OF THE [place] IN LAST 30 DAYS: No - HPI Notes: Patient is a 37-year-old female with a history of hypertension, diabetes, hypothyroidism who presents to the ED complaining of having 2 episodes of chest pain that is described as a burning sensation today. She had a burning sensation at 11 AM and another at 4 PM. Patient states that the pain did not radiate and was worsened with food intake. Patient states that she had a negative stress test performed 1 month ago and a relatively unremarkable echocardiogram last month as well. She has no significant cardiopulmonary medical history otherwise. Denies any prolonged immobilization, recent surgery/ trauma, smoking, hormone use, previous DVT/PE. No other concerns or complaints at this time. Pt currently does not have any CP. Denies any headache, fever, URI, sore throat, palpitations, syncope, cough, shortness of breath, wheeze, dyspnea, abdominal pain, nausea/vomiting/diarrhea, urinary retention, dysuria, hematuria, back pain, loss of control of bowel or bladder, numbness/tingling, muscle paralysis/weakness, or rash. - Related Data Allergies/Adverse Reactions: meperidine HCl [From Demerol] Allergy (Intermediate, Verified 04/28/18 15:13) Hives Past Medical History - Social History Smoking Status: Never Smoker Chew tobacco use (# tins/day): No Frequency of alcohol use: None Drug Abuse: None Family History: Reviewed & Not Pertinent, CAD, DM, Hypertension, Thyroid Disfunction Patient has suicidal ideation: No Patient has homicidal ideation: No - Past Medical History Cardiac Medical History: Reports: Hx Hypertension - Borderline Pulmonary Medical History: Reports: Hx Asthma, Hx Tuberculosis Endocrine Medical History: Reports: Hx Diabetes Mellitus Type 2 - pre, Hx Hypothyroidism Renal/ Medical History: Reports: Hx Kidney Stones. Denies: Hx Peritoneal Dialysis GI Medical History: Reports: Hx Ulcer Past Surgical History: Reports: Hx Section - x1, Hx Gynecologic Surgery - D&C, Hx Thyroid Surgery - Thyroidectomy - Immunizations Immunizations up to date: Yes Hx Diphtheria, Pertussis, Tetanus Vaccination: Yes Review of Systems - Review of Systems -: Yes All other systems reviewed and negative Physical Exam - Vital signs Vitals: Temp Pulse Resp BP Pulse Ox 98.1 F 61 18 126/83 H 100 05/09/18 21:00 05/09/18 21:00 05/09/18 21:00 05/09/18 21:00 05/09/18 21:00 - Notes Notes: PHYSICAL EXAMINATION: GENERAL: Well-appearing, well-nourished and in no acute distress. HEAD: Atraumatic, normocephalic. EYES: Pupils equal round and reactive to light, extraocular movements intact, sclera anicteric, conjunctiva are normal. ENT: Nares patent and without discharge. oropharynx clear without exudates. No tonsilar hypertrophy or erythema. Moist mucous membranes. NECK: Normal range of motion, supple without lymphadenopathy LUNGS: Breath sounds clear to auscultation bilaterally and equal. No wheezes rales or rhonchi. HEART: Regular rate and rhythm without murmurs, rubs, gallops. ABDOMEN: Soft, nondistended abdomen. No guarding, no rebound. No masses appreciated. Normal bowel sounds present. No CVA tenderness bilaterally. + mild epigastric tenderness, correlates with pain described. Musculoskeletal: FROM to passive/active. Strength 5+/5. Carina neg b/l. Extremities: No cyanosis, clubbing, or edema b/l. Peripheral pulses 2+. Capillary refill less than 3 seconds. NEUROLOGICAL: Normal speech, normal gait. PSYCH: Normal mood, normal affect. SKIN: Warm, Dry, normal turgor, no rashes or lesions noted. Course - Re-evaluation Re-evalutation: 05/09/18 23:17 Patient is an afebrile, well-hydrated, 37-year-old female who presents to the ED with epigastric pain and acid reflux based on H&P today. Vitals are acceptable. PE is otherwise unremarkable. CBC, CMP, lipase, cardiac enzymes/ EKG, chest x-ray were unremarkable for any acute pathology. Patient has no significant tachycardia, tachypnea, or hypoxia. Low DVT risk factors. Patient has a heart score of 1 and PERC negative. No other labs or imaging warranted at this time based on H&P. GI cocktail was given and resolved her symptoms. Patient reportedly had a negative stress test 1 month ago. Low suspicion for any ACS, PE, pneumothorax, pericarditis, dissection, respiratory compromise, severe dehydration, sepsis, meningitis, perforated ulcer, acute abdomen, or other systemic emergent condition at this time. Patient is aware that her condition can change from initial presentation and she needs to monitor symptoms closely and seek medical attention for any acute changes. I will send her home with a prescription for Carafate and omeprazole. Recommend conservative measures for symptoms. Recheck with your PCM in 3-5 days. Return to the ED with any worsening/concerning symptoms otherwise as reviewed in discharge. Patient is in agreement. - Vital Signs Vital signs: Temp Pulse Resp BP Pulse Ox 98.1 F 61 18 126/83 H 100 05/09/18 21:00 05/09/18 21:00 05/09/18 21:00 05/09/18 21:00 05/09/18 21:00 - Laboratory Result Diagrams: 05/09/18 21:30 05/09/18 21:30 Laboratory results interpreted by me: 05/09/18 21:30 MCV 79 L MCH 26.2 L Discharge - Discharge Clinical Impression: Epigastric pain GERD (gastroesophageal reflux disease) Qualifiers: Esophagitis presence: esophagitis presence not specified Qualified Code(s): K21.9 - Gastro-esophageal reflux disease without esophagitis Condition: Stable Disposition: HOME, SELF-CARE Instructions: Reflux Disease (GERD) ([facility]), Chest Pain of Unclear Cause ([facility]) Additional Instructions: Maintain adequate fluid and food intake Avoid caffeine, spicy, sutures, acidic foods tylenol if needed Monitor for any worsening symptoms Make sure you are staying hydrated enough to urinate and have normal BM's Recheck with your PCM in 3-5 days Consider consult with Gastroenterology for ongoing/worsening symptoms Return to the ED with any worsening symptoms and/or development of fever, headache, chest pain, palpitations, syncope, shortness of breath, trouble breathing, abdominal pain, n/v/d, blood in stool/urine, weakness, or other worsening symptoms that are concerning to you. Prescriptions: Omeprazole 20 mg PO DAILY #30 tablet. Sucralfate [Carafate] 1 gm PO QID PRN #420 ml PRN Reason: Forms: Elevated Blood Pressure Referrals: LOCO SANCHEZ PA-C [Primary Care Provider] - Follow up in 3-5 days KUSUM ERWIN MD [ACTIVE STAFF] - Follow up as needed
[2018-05-09 21:43] LABS: ABSOLUTE BASOPHILS # (AUTO) 0.1 10^3/uL (0.0-0.2); ABSOLUTE EOSINOPHILS # (AUTO) 0.2 10^3/uL (0.0-0.6); ABSOLUTE LYMPHOCYTES (AUTO) 2.6 10^3/uL (0.5-4.7); ABSOLUTE MONOCYTES (AUTO) 0.5 10^3/uL (0.1-1.4); ABSOLUTE NEUT (AUTO) 3.7 10^3/uL (1.7-8.2); EOSINOPHILS % (AUTO) 3.1 % (0-6); HEMATOCRIT 39.9 % (36.0-47.0); HEMOGLOBIN 13.3 g/dL (12.0-15.5); LYMPHOCYTES % (AUTO) 36.6 % (13-45); MEAN CORPUSCULAR HEMOGLOBIN 26.2 pg (27.0-33.4); MEAN CORPUSCULAR HGB CONC 33.3 g/dL (32.0-36.0); MEAN CORPUSCULAR VOLUME 79 fl (80-97); MONOCYTES % (AUTO) 6.6 % (3-13); PLATELET COUNT 282 10^3/uL (150-450); RED BLOOD COUNT 5.06 10^6/uL (3.72-5.28); RED CELL DISTRIBUTION WIDTH 13.9 % (11.5-14.0); SEGMENTED NEUTROPHILS % (AUTO) 52.7 % (42-78); TOTAL CELLS COUNTED % (AUTO) 100 %
[2018-05-09 22:01] LABS: ALANINE AMINOTRANSFERASE 23 U/L (9-52); ALBUMIN 4.2 g/dL (3.5-5.0); ALKALINE PHOSPHATASE 70 U/L (38-126); ANION GAP 11 (5-19); ASPARTATE AMINO TRANSFERASE 18 U/L (14-36); BILIRUBIN,DIRECT 0.3 mg/dL (0.0-0.4); BILIRUBIN,TOTAL 0.4 mg/dL (0.2-1.3); BLOOD UREA NITROGEN 14 mg/dL (7-20); CALCIUM 9.4 mg/dL (8.4-10.2); CARBON DIOXIDE 28 mmol/L (22-30); CHLORIDE 104 mmol/L (98-107); GLUCOSE 87 mg/dL (75-110); LIPASE 248.1 U/L (23-300); POTASSIUM 4.1 mmol/L (3.6-5.0); SODIUM 143.4 mmol/L (137-145); TOTAL PROTEIN 7.5 g/dL (6.3-8.2)
--- NOTE | 2018-05-09 22:21 | RADIOLOGY REPORT (SQ) ---
EXAM DESCRIPTION: CHEST SINGLE VIEW COMPLETED DATE/TIME: 05/09/2018 10:11 pm REASON FOR STUDY: chest pain, epigastric pain COMPARISON: 10/31/2016 EXAM PARAMETERS: NUMBER OF VIEWS: One view. TECHNIQUE: Single frontal radiographic view of the chest acquired. RADIATION DOSE: NA LIMITATIONS: None. FINDINGS: LUNGS AND PLEURA: No opacities, masses or pneumothorax. No pleural effusion. MEDIASTINUM AND HILAR STRUCTURES: No masses. Contour normal. HEART AND VASCULAR STRUCTURES: Heart normal in size. Normal vasculature. BONES: No acute findings. HARDWARE: None in the chest. OTHER: No other significant finding. IMPRESSION: NO ACUTE RADIOGRAPHIC FINDING IN THE CHEST. TECHNICAL DOCUMENTATION: JOB ID: [id number] [employer]- All Rights Reserved Reading location - IP/workstation name: [email or web address]
--- NOTE | 2018-05-09 22:54 | EKG REPORT ---
SEVERITY:- NORMAL ECG - SINUS RHYTHM : Confirmed by: Angelito Milan 09-May-2018 22:54:25
[2018-05-10 00:06] VITALS: BP 124/80
== END 2018-05-09 23:49 | disposition home or self-care (01) ==
LOC: ER 20:27
DX: R10.13 Epigastric pain (principal); K21.9 Gastro-esophageal reflux disease without esophagitis; Z82.49 Family history of ischemic heart disease and other diseases of the circulatory system; Z87.11 Personal history of peptic ulcer disease
CPT/HCPCS: 93005; 99284; 36415; 83690; 85025; 80053; 84484; 71045; 93010; J3490 ×3

== ENCOUNTER 2018-07-11 09:00 | Emergency (ER) | payer MEDICAID ==
--- NOTE | 2018-07-11 09:48 | ER Document Report ---
HPI - HPI Patient complains to provider of: dental pain and swelling Onset: This morning Onset/Duration: Sudden Quality of pain: Achy Pain Level: 4 Context: Patient presents to the emergency department with complaints of breaking her tooth last night. She reports this morning she woke up with right- sided facial swelling. Denies fever vomiting diarrhea. Reports she has an appointment with [facility] tomorrow morning. Associated Symptoms: None Exacerbated by: Food Relieved by: Denies Similar symptoms previously: No Recently seen / treated by doctor: No - CONSTITUTIONAL Constitutional: DENIES: Fever, Chills - EENT EENT: DENIES: Sore Throat, Ear Pain, Eye problems - NEURO Neurology: DENIES: Headache, Weakness, Vision blurred, Dizzinesss / Vertigo - RESPIRATORY Respiratory: REPORTS: Coughing - from allergies - REPRODUCTIVE Reproductive: DENIES: : - MUSCULOSKELETAL Musculoskeletal: DENIES: Extremity pain Past Medical History - General Information source: Patient - Social History Smoking Status: Never Smoker Cigarette use (# per day): No Frequency of alcohol use: None Drug Abuse: None Occupation: [employer] Lives with: Family Family History: Reviewed & Not Pertinent, CAD, DM, Hypertension, Thyroid Disfunction Patient has suicidal ideation: No Patient has homicidal ideation: No - Past Medical History Cardiac Medical History: Reports: Hx Hypertension - Borderline Pulmonary Medical History: Reports: Hx Asthma, Hx Tuberculosis Endocrine Medical History: Reports: Hx Diabetes Mellitus Type 2 - pre, Hx Hypothyroidism Renal/ Medical History: Reports: Hx Kidney Stones. Denies: Hx Peritoneal Dialysis GI Medical History: Reports: Hx Ulcer Past Surgical History: Reports: Hx Section - x1, Hx Gynecologic Surgery - D&C, Hx Thyroid Surgery - Thyroidectomy - Immunizations Immunizations up to date: Yes Hx Diphtheria, Pertussis, Tetanus Vaccination: Yes Vertical Provider Document - CONSTITUTIONAL Agree With Documented VS: Yes Exam Limitations: No Limitations General Appearance: WD/WN, No Apparent Distress - INFECTION CONTROL TRAVEL OUTSIDE OF THE [place] IN LAST 30 DAYS: No - HEENT HEENT: Atraumatic, Normocephalic - very slight swelling to right maxillary area , no erythema, no warmth, no pustula Mouth Diagram: 1 - pain, opens mouth wide, no erythema, no swelling, no pustule, clear voice, neg [place] - NECK Neck: Normal Inspection, Supple. negative: Lymphadenopathy-Left, Lymphadenopathy-Right - RESPIRATORY Respiratory: Breath Sounds Normal, No Respiratory Distress - CARDIOVASCULAR Cardiovascular: Regular Rate - MUSCULOSKELETAL/EXTREMETIES Musculoskeletal/Extremeties: MAEW, FROM - NEURO Level of Consciousness: Awake, Alert, Appropriate Motor/Sensory: No Motor Deficit - DERM Integumentary: Warm, Dry. negative: Abscess Course - Re-evaluation Re-evalutation: 07/11/18 \ patient instructed on PENVK. She has a dental appointment tomorrow. - Vital Signs Vital signs: Temp Pulse Resp BP Pulse Ox 99.1 F 84 14 134/79 H 99 07/11/18 09:09 07/11/18 09:09 07/11/18 09:09 07/11/18 09:09 07/11/18 09:09 Discharge - Discharge Clinical Impression: Pain, dental Condition: Stable Disposition: HOME, SELF-CARE Instructions: Penicillin V K ([facility]), Toothache ([facility]) Additional Instructions: *You have been evaluated for dental pain and swelling *Take medications as prescribed *Take ibuprofen or tylenol for pain as indicated *Follow up with your dentist as scheduled tomorrow. *Return to ED for worsening condition, changes, needs Monitor your blood pressure. Your blood pressure was elevated today. This may be because you were anxious, in pain or because you need medication. It is important to follow up with your primary care provider for full evaluation. Prescriptions: Penicillin V Potassium [Penicillin Vk 500 mg Tablet] 500 mg PO BID #20 tablet Forms: Elevated Blood Pressure Referrals: LOCO SANCHEZ PA-C [Primary Care Provider] - Follow up in 3-5 days
[2018-07-11 10:02] VITALS: BP 127/76
== END 2018-07-11 10:03 | disposition home or self-care (01) ==
LOC: ER 09:00
DX: K08.89 Other specified disorders of teeth and supporting structures (principal); R05 Cough; I10 Essential (primary) hypertension; J45.909 Unspecified asthma, uncomplicated; E11.9 Type 2 diabetes mellitus without complications
CPT/HCPCS: 99282

== ENCOUNTER 2018-07-12 20:59 | Emergency (ER) | payer MEDICAID ==
[2018-07-12 21:05] VITALS: BP 124/70
[2018-07-13] MEDS ORDERED: DEXAMETHASONE SOD PHOS INJ 10 MG/1 ML VIAL IV ONE (00:09)
[2018-07-13] MEDS ORDERED: CLINDAMYCIN 900 MG/D5W RTU 900 MG/50 ML RTUPB IV ONE (00:09)
--- NOTE | 2018-07-13 00:10 | ER Document Report ---
ED General - General Chief Complaint: Facial Swelling Stated Complaint: SWOLLEN FACE Time Seen by Provider: 07/12/18 23:54 Notes: This is a pleasant 37-year-old female to the emergency department for evaluation of facial swelling. Patient was seen here previously in the emergency department and told that she might have a dental infection. Started on penicillin. Followed up with dentist. Dentist was more concerned about a facial cellulitis is sent back here for repeat evaluation. Patient does have some pain and redness on the right side of her face. No change in vision. No pain with eye movement. Had x-rays at the dentist and was told she had a cracked tooth. Otherwise denies any other major symptoms at this time. Denies any fever, chills, sweats. Getting on the right side of her face maxillary area. TRAVEL OUTSIDE OF THE [place] IN LAST 30 DAYS: No - HPI Onset: Yesterday Onset/Duration: Gradual, Worse Quality of pain: Achy Severity: Moderate Pain Level: 3 Associated symptoms: None - Related Data Allergies/Adverse Reactions: meperidine HCl [From Demerol] Allergy (Intermediate, Verified 07/12/18 21:00) [place] Past Medical History - General Information source: Patient - Social History Smoking Status: Never Smoker Chew tobacco use (# tins/day): No Frequency of alcohol use: None Drug Abuse: None Family History: Reviewed & Not Pertinent, CAD, DM, Hypertension, Thyroid Disfunction Patient has suicidal ideation: No Patient has homicidal ideation: No - Past Medical History Cardiac Medical History: Reports: Hx Hypertension - Borderline Pulmonary Medical History: Reports: Hx Asthma, Hx Tuberculosis Endocrine Medical History: Reports: Hx Diabetes Mellitus Type 2 - pre, Hx Hypothyroidism Renal/ Medical History: Reports: Hx Kidney Stones. Denies: Hx Peritoneal Dialysis GI Medical History: Reports: Hx Ulcer Past Surgical History: Reports: Hx Section - x1, Hx Gynecologic Surgery - D&C, Hx Thyroid Surgery - Thyroidectomy - Immunizations Immunizations up to date: Yes Hx Diphtheria, Pertussis, Tetanus Vaccination: Yes Review of Systems - Review of Systems Notes: Constitutional: denies: Chills, Diaphoresis, Fever, Malaise, Weakness EENT: denies: Eye discharge, Blurred vision, Tearing, Double vision, Nose congestion, Nose discharge, Throat swelling,. Does complain of swelling on the right side of the face with some right upper posterior tooth/mouth pain Cardiovascular: denies: Palpitations, Heart racing, Orthopnea, Dyspnea, Chest pain Respiratory: denies: Cough, Hurts to breathe, Wheezing, Shortness of breath Gastrointestinal: denies: Abdominal pain, Diarrhea, Nausea, Vomiting, Black stools, bright red blood in stool Genitourinary: denies: Burning, Dysuria, Discharge, Frequency, Flank pain, Hematuria Musculoskeletal: denies: Joint pain, Joint swelling, Muscle pain, Muscle stiffness, back pain Hematologic/Lymphatic: denies: Anemia, Easy bleeding, Easy bruising, Blood clots Neurological/Psychological: denies: Confusion, Dementia, Depression, Loss of consciousness Skin: No lesions, no masses, no skin breakdown, no abscesses Physical Exam - Vital signs Vitals: Temp Pulse Resp BP Pulse Ox 98.6 F 72 20 124/70 97 07/12/18 21:04 07/12/18 21:04 07/12/18 21:04 07/12/18 21:04 07/12/18 21:04 Interpretation: Normal - General General appearance: Appears well, Alert - HEENT Head: Normocephalic, Atraumatic Eyes: Normal Pupils: PERRL Notes: Moderate amount of swelling noted to the right zygomatic area of the face. There is a small little red bryant on the skin but no obvious drainable abscess. Some tenderness to palpation along the gumline of the right maxillary molar area. Appears full but no active drainage. There is some cracked teeth with some poor dentition of the molars on the back right upper teeth. - Respiratory Respiratory status: No respiratory distress Chest status: Nontender Breath sounds: Normal Chest palpation: Normal - Cardiovascular Rhythm: Regular Heart sounds: Normal auscultation Murmur: No - Abdominal Inspection: Normal Distension: No distension Bowel sounds: Normal Tenderness: Nontender Organomegaly: No organomegaly - Back Back: Normal, Nontender - Extremities General upper extremity: Normal inspection, Nontender, Normal color, Normal ROM , Normal temperature General lower extremity: Normal inspection, Nontender, Normal color, Normal ROM , Normal temperature, Normal weight bearing. No: Carina's sign - Neurological Neuro grossly intact: Yes Cognition: Normal Orientation: AAOx4 [employer] [place] Coma Scale Eye Opening: Spontaneous [place] Coma Scale Verbal: Oriented [employer] [place] Coma Scale Motor: Obeys Commands [place] Coma Scale Total: 15 Speech: Normal Motor strength normal: LUE, RUE, LLE, RLE Sensory: Normal - Psychological Associated symptoms: Normal affect, Normal mood - Skin Skin Temperature: Warm Skin Moisture: Dry Skin Color: Normal Course - Re-evaluation Re-evalutation: 07/13/18 02:23 White blood cell count within normal range. IV antibiotics given. Will switch her over to clindamycin. Did give a dose of steroids. Patient was advised that if it is not getting better within the next [address] scan of the face may be needed. Patient has good fund of knowledge. 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 Understands the risks involved in radiation exposure as well so we have opted to attempt treatment at this time. Patient does not realize that there is a high chance that she may actually need a CAT scan if this is not getting better and getting worse and that she will also need to probably follow-up with the dentist as well. I will also give her follow-up information for oral surgeon. - Vital Signs Vital signs: Temp Pulse Resp BP Pulse Ox 98.6 F 72 20 124/70 97 07/12/18 21:04 07/12/18 21:04 07/12/18 21:04 07/12/18 21:04 07/12/18 21:04 - Laboratory Result Diagrams: 07/13/18 02:01 Laboratory results interpreted by me: 07/13/18 02:01 MCV 79 L MCH 26.2 L Discharge - Discharge Clinical Impression: Abscess, dental Condition: Good Disposition: HOME, SELF-CARE Instructions: Dental Infection or Abscess ([facility]) Additional Instructions: In the event that your intervals are getting worse over the next 24 hours, blurred vision, pain with eye movement, fever, severe headache, difficulty swallowing, swelling of your eye or for any other concerns please return for repeat evaluation in 12-24 hours. Prescriptions: Clindamycin HCl 300 mg PO QID PRN 10 Days #40 capsule PRN Reason: Referrals: LOCO SANCHEZ PA-C [Primary Care Provider] - Follow up as needed KENNETH COLLINS MD [ACTIVE STAFF] - Follow up in 3-5 days
[2018-07-13 02:10] LABS: ABSOLUTE EOSINOPHILS # (AUTO) 0.2 10^3/uL (0.0-0.6); ABSOLUTE LYMPHOCYTES (AUTO) 1.7 10^3/uL (0.5-4.7); ABSOLUTE MONOCYTES (AUTO) 0.4 10^3/uL (0.1-1.4); ABSOLUTE NEUT (AUTO) 2.7 10^3/uL (1.7-8.2); HEMATOCRIT 36.4 % (36.0-47.0); HEMOGLOBIN 12.2 g/dL (12.0-15.5); LYMPHOCYTES % (AUTO) 33.7 % (13-45); MEAN CORPUSCULAR HEMOGLOBIN 26.2 pg (27.0-33.4); MEAN CORPUSCULAR HGB CONC 33.4 g/dL (32.0-36.0); MEAN CORPUSCULAR VOLUME 79 fl (80-97); MONOCYTES % (AUTO) 8.1 % (3-13); PLATELET COUNT 236 10^3/uL (150-450); RED BLOOD COUNT 4.64 10^6/uL (3.72-5.28); RED CELL DISTRIBUTION WIDTH 13.5 % (11.5-14.0); SEGMENTED NEUTROPHILS % (AUTO) 53.2 % (42-78); TOTAL CELLS COUNTED % (AUTO) 100 %; WHITE BLOOD COUNT 5.1 10^3/uL (4.0-10.5)
== END 2018-07-13 02:47 | disposition home or self-care (01) ==
LOC: ER 20:59
DX: K04.7 Periapical abscess without sinus (principal); E11.9 Type 2 diabetes mellitus without complications; E03.9 Hypothyroidism, unspecified; Z87.442 Personal history of urinary calculi
CPT/HCPCS: 99283; 96365; 96367; 36415; 87040; 85025; J1100

== ENCOUNTER 2018-11-01 20:00 | Emergency (ER) | payer MEDICAID ==
[2018-11-01] MEDS ORDERED: ASPIRIN 81 MG TABLET, CHEWABLE PO ONE (20:06)
--- NOTE | 2018-11-01 20:38 | RADIOLOGY REPORT (SQ) ---
EXAM DESCRIPTION: CHEST SINGLE VIEW COMPLETED DATE/TIME: 11/01/2018 8:28 pm REASON FOR STUDY: cp COMPARISON: 05/09/2018. EXAM PARAMETERS: NUMBER OF VIEWS: One view. TECHNIQUE: Single frontal radiographic view of the chest acquired. RADIATION DOSE: NA LIMITATIONS: None. FINDINGS: LUNGS AND PLEURA: No opacities, masses or pneumothorax. No pleural effusion. MEDIASTINUM AND HILAR STRUCTURES: No masses. Contour normal. HEART AND VASCULAR STRUCTURES: Heart normal in size. Normal vasculature. BONES: No acute findings. HARDWARE: None in the chest. OTHER: No other significant finding. IMPRESSION: NO ACUTE RADIOGRAPHIC FINDING IN THE CHEST. TECHNICAL DOCUMENTATION: JOB ID: [id number] [employer]- All Rights Reserved Reading location - IP/workstation name: [email or web address]
--- NOTE | 2018-11-01 21:05 | ER Document Report ---
ED Medical Screen (RME) - General Chief Complaint: Chest Pain Stated Complaint: CHEST PAIN Time Seen by Provider: 11/01/18 20:54 Notes: 38-year-old female chief complaint of 4 days of upper abdominal pain that radiates up into her chest and also in her right flank. Denies fever, reports nausea, symptoms worse after eating. Denies dysuria, difficulty breathing. She states she had an abnormal EKG previously, this was supposed to be followed up, she also has a family history of cardiac disease. Denies current pain of her chest or abdomen. TRAVEL OUTSIDE OF THE [place] IN LAST 30 DAYS: No - Related Data Allergies/Adverse Reactions: meperidine HCl [From Demerol] Allergy (Intermediate, Verified 07/12/18 21:00) Hives Past Medical History - Social History Chew tobacco use (# tins/day): No Frequency of alcohol use: None Drug Abuse: None - Past Medical History Cardiac Medical History: Reports: Hx Hypertension - Borderline Pulmonary Medical History: Reports: Hx Asthma, Hx Tuberculosis Endocrine Medical History: Reports: Hx Diabetes Mellitus Type 2 - pre, Hx Hypothyroidism Renal/ Medical History: Reports: Hx Kidney Stones. Denies: Hx Peritoneal Dialysis GI Medical History: Reports: Hx Ulcer Past Surgical History: Reports: Hx Section - x1, Hx Gynecologic Surgery - D&C, Hx Thyroid Surgery - Thyroidectomy - Immunizations Immunizations up to date: Yes Hx Diphtheria, Pertussis, Tetanus Vaccination: Yes Physical Exam - Vital signs Vitals: Temp Pulse Resp BP Pulse Ox 97.9 F 64 20 135/84 H 97 11/01/18 20:06 11/01/18 20:06 11/01/18 20:06 11/01/18 20:06 11/01/18 20:06 - Respiratory Respiratory status: No respiratory distress Breath sounds: Normal - Abdominal Tenderness: Tender - Epigastric tenderness, otherwise unremarkable, exam limited by sitting position Course - Vital Signs Vital signs: Temp Pulse Resp BP Pulse Ox 97.9 F 64 20 135/84 H 97 11/01/18 20:06 11/01/18 20:06 11/01/18 20:06 11/01/18 20:06 11/01/18 20:06 Doctor's Discharge - Discharge Referrals: LOCO SANCHEZ PA-C [Primary Care Provider] - Follow up as needed
[2018-11-01 23:10] LABS: ABSOLUTE BASOPHILS # (AUTO) 0.1 10^3/uL (0.0-0.2); ABSOLUTE EOSINOPHILS # (AUTO) 0.4 10^3/uL (0.0-0.6); ABSOLUTE LYMPHOCYTES (AUTO) 2.4 10^3/uL (0.5-4.7); ABSOLUTE MONOCYTES (AUTO) 0.5 10^3/uL (0.1-1.4); ABSOLUTE NEUT (AUTO) 3.2 10^3/uL (1.7-8.2); EOSINOPHILS % (AUTO) 6.1 % (0-6); HEMATOCRIT 39.3 % (36.0-47.0); HEMOGLOBIN 13.1 g/dL (12.0-15.5); LYMPHOCYTES % (AUTO) 36.4 % (13-45); MEAN CORPUSCULAR HEMOGLOBIN 25.9 pg (27.0-33.4); MEAN CORPUSCULAR HGB CONC 33.2 g/dL (32.0-36.0); MEAN CORPUSCULAR VOLUME 78 fl (80-97); MONOCYTES % (AUTO) 6.9 % (3-13); PLATELET COUNT 280 10^3/uL (150-450); RED BLOOD COUNT 5.03 10^6/uL (3.72-5.28); RED CELL DISTRIBUTION WIDTH 14.4 % (11.5-14.0); SEGMENTED NEUTROPHILS % (AUTO) 49.6 % (42-78); TOTAL CELLS COUNTED % (AUTO) 100 %; WHITE BLOOD COUNT 6.5 10^3/uL (4.0-10.5)
[2018-11-01 23:32] LABS: ALANINE AMINOTRANSFERASE 24 U/L (9-52); ALBUMIN 4.4 g/dL (3.5-5.0); ALKALINE PHOSPHATASE 80 U/L (38-126); ANION GAP 12 (5-19); ASPARTATE AMINO TRANSFERASE 25 U/L (14-36); BILIRUBIN,DIRECT 0.2 mg/dL (0.0-0.4); BILIRUBIN,TOTAL 0.3 mg/dL (0.2-1.3); BLOOD UREA NITROGEN 14 mg/dL (7-20); CALCIUM 9.7 mg/dL (8.4-10.2); CARBON DIOXIDE 28 mmol/L (22-30); CHLORIDE 102 mmol/L (98-107); GLUCOSE 98 mg/dL (75-110); LIPASE 224.8 U/L (23-300); TOTAL PROTEIN 7.8 g/dL (6.3-8.2)
--- NOTE | 2018-11-01 23:54 | RADIOLOGY REPORT (SQ) ---
EXAM DESCRIPTION: US ABDOMEN LIMITED COMPLETED DATE/TME: 11/01/2018 21:03 CLINICAL HISTORY: 38 years, Female, epig abd pain radiating to right flank, nausea COMPARISON: EXAM DESCRIPTION: CLINICAL HISTORY: epig abd pain radiating to right flank, nausea COMPARISON: None. FINDINGS: Sonography was performed of the right upper quadrant. Proximal and mid aorta are unremarkable. Distal aorta is not seen. Liver span is 17.0 cm. There is fatty infiltration of the liver. Flow in the main portal vein is in the expected direction. No sonographic Curran's sign. Right kidney measures 10.6 cm in length. The gallbladder is normal in appearance with no evidence of gallstones, sludge, wall thickening or pericholecystic fluid. No focal hepatic or pancreatic lesion is seen. The right kidney appears normal. Common duct is normal in caliber. IMPRESSION: Fatty infiltration of the liver on otherwise normal exam. TECHNIQUE: LIMITATIONS: None. FINDINGS: IMPRESSION: copyright 2010 [employer]- All Rights Reserved
--- NOTE | 2018-11-01 23:57 | ER Document Report ---
ED GI/ - General Chief Complaint: Chest Pain Stated Complaint: CHEST PAIN Time Seen by Provider: 11/01/18 23:57 Mode of Arrival: Ambulatory Information source: Patient Notes: Patient is a 38-year-old female with no significant past medical history who presents with upper epigastric abdominal pain going on intermittently for the past several months. Patient has been seen by her primary physician and was told "I have heartburn," and does report mild improvement but were denies staying on medication. She does report intermittent episodes of "indigestion" that is worsened with eating spicy or fried foods. She denies chest pain or shortness of breath, no constipation or diarrhea, no fevers or chills, no other symptoms. Last mental period was normal. TRAVEL OUTSIDE OF THE [place] IN LAST 30 DAYS: No - HPI Patient complains to provider of: Abdominal pain Onset: Other - "Off and on for several months" Timing/Duration: Gradual, Intermittent Quality of pain: Achy, Burning Severity at maximum: Moderate Severity in ED: Mild Pain Level: 1 Location: Epigastric Vaginal bleeding (Compared to normal period): None Sexual history: Inactive Associated symptoms: Nausea Exacerbated by: Denies Relieved by: Denies Similar symptoms previously: Yes Recently seen / treated by doctor: No - Related Data Allergies/Adverse Reactions: meperidine HCl [From Demerol] Allergy (Intermediate, Verified 07/12/18 21:00) Hives Past Medical History - General Information source: Patient - Social History Smoking Status: Never Smoker Chew tobacco use (# tins/day): No Frequency of alcohol use: None Drug Abuse: None Lives with: Family Family History: Reviewed & Not Pertinent, CAD, DM, Hypertension, Thyroid Disfunction Patient has suicidal ideation: No Patient has homicidal ideation: No - Past Medical History Cardiac Medical History: Reports: Hx Hypertension - Borderline Pulmonary Medical History: Reports: Hx Asthma, Hx Tuberculosis EENT Medical History: Reports: None Neurological Medical History: Reports: None Endocrine Medical History: Reports: Hx Diabetes Mellitus Type 2 - pre, Hx Hypothyroidism Renal/ Medical History: Reports: Hx Kidney Stones. Denies: Hx Peritoneal Dialysis Malignancy Medical History: Reports: None GI Medical History: Reports: Hx Ulcer Musculoskeletal Medical History: Reports None Skin Medical History: Reports None Psychiatric Medical History: Reports: None Traumatic Medical History: Reports: None Infectious Medical History: Reports: None Past Surgical History: Reports: Hx Section - x1, Hx Gynecologic Surgery - D&C, Hx Thyroid Surgery - Thyroidectomy - Immunizations Immunizations up to date: Yes Hx Diphtheria, Pertussis, Tetanus Vaccination: Yes Review of Systems - Review of Systems Constitutional: No symptoms reported EENT: No symptoms reported Cardiovascular: No symptoms reported Respiratory: No symptoms reported Gastrointestinal: See HPI, Abdominal pain, Nausea. denies: Diarrhea, Vomiting, Blood in vomit, Black stools Genitourinary: No symptoms reported Female Genitourinary: No symptoms reported Musculoskeletal: No symptoms reported Skin: No symptoms reported Hematologic/Lymphatic: No symptoms reported Neurological/Psychological: No symptoms reported -: Yes All other systems reviewed and negative Physical Exam - Vital signs Vitals: Temp Pulse Resp BP Pulse Ox 97.9 F 64 20 135/84 H 97 11/01/18 20:06 11/01/18 20:06 11/01/18 20:06 11/01/18 20:06 11/01/18 20:06 Interpretation: Normal - General General appearance: Appears well, Alert In distress: None - HEENT Head: Normocephalic, Atraumatic Eyes: Normal Pupils: PERRL - Respiratory Respiratory status: No respiratory distress Chest status: Nontender Breath sounds: Normal Chest palpation: Normal - Cardiovascular Rhythm: Regular Heart sounds: Normal auscultation Murmur: No - Abdominal Inspection: Normal Distension: No distension Bowel sounds: Normal Tenderness: Tender - Mild epigastric tenderness, no rebound or guarding. No: Guarding, Rebound Organomegaly: No organomegaly - Rectal Notes: Deferred - Genitourinary Notes: Deferred - Back Back: Normal, Nontender - Extremities General upper extremity: Normal inspection, Nontender, Normal color, Normal ROM , Normal temperature General lower extremity: Normal inspection, Nontender, Normal color, Normal ROM , Normal temperature, Normal weight bearing. No: Carina's sign - Neurological Neuro grossly intact: Yes Cognition: Normal Orientation: AAOx4 [place] Coma Scale Eye Opening: Spontaneous [place] Coma Scale Verbal: Oriented [place] Coma Scale Motor: Obeys Commands [place] Coma Scale Total: 15 Speech: Normal Motor strength normal: LUE, RUE, LLE, RLE Sensory: Normal - Psychological Associated symptoms: Normal affect, Normal mood - Skin Skin Temperature: Warm Skin Moisture: Dry Skin Color: Normal Course - Re-evaluation Re-evalutation: 11/02/18 02:29 Patient most likely has peptic ulcer disease given her history and presenting symptoms. Lab work, including troponin, is negative. Patient was instructed to follow-up with GI for potential EGD if necessary. She will be discharged home with return precautions and follow-up. The patient both agrees and understands the plan. - Vital Signs Vital signs: Temp Pulse Resp BP Pulse Ox 97.9 F 64 20 135/84 H 97 11/01/18 20:06 11/01/18 20:06 11/01/18 20:06 11/01/18 20:06 11/01/18 20:06 - Laboratory Result Diagrams: 11/01/18 22:47 11/01/18 22:47 Laboratory results interpreted by me: 11/01/18 11/02/18 22:47 00:20 MCV 78 L MCH 25.9 L RDW 14.4 H Eosinophils % 6.1 H Ur Leukocyte Esterase SMALL H - Diagnostic Test Radiology reviewed: Reports reviewed - EKG Interpretation by Me EKG shows normal: Sinus rhythm Rate: Normal Rhythm: NSR [place]/QRS: No: LBBB P Waves: No: MARCY, LAE, Absent, AV Dissociation, Other Heart block present: No: 1st Degree, Mobitz 1, Mobitz 2, CHB (3rd degree block) When compared to previous EKG there are: No significant change Discharge - Discharge Clinical Impression: Dyspepsia Abdominal pain Qualifiers: Abdominal location: epigastric Qualified Code(s): R10.13 - Epigastric pain Condition: Good Disposition: HOME, SELF-CARE Instructions: Abdominal Pain ([facility]) Additional Instructions: Please follow-up with your primary physician and anesthesia associate as needed. Take your prescribed medications as instructed. Return to the emergency department if you experience worsening pain, the inability to keep down food, or have any other concerning symptoms. Prescriptions: Omeprazole 20 mg PO DAILY 30 Days #30 capsule. Ondansetron [Zofran Odt 4 mg Tablet] 1 tab PO Q6H PRN #30 tab.rapdis PRN Reason: For Nausea/Vomiting Sucralfate [Carafate 1 gm Tablet] 1 gm PO ACHS #60 tablet Referrals: LOCO SANCHEZ PA-C [Primary Care Provider] - Follow up as needed LISHA LIZAMA MD [ACTIVE STAFF] - Follow up as needed Print Language: Burundian
[2018-11-02 00:52] LABS: APPEARANCE,URINE SLIGHTLY-CLOUDY; BILIRUBIN,URINE NEGATIVE (NEGATIVE); COLOR,URINE YELLOW; GLUCOSE, URINE NEGATIVE (NEGATIVE); KETONES,URINE NEGATIVE (NEGATIVE); LEUKOCYTE ESTERASE,URINE SMALL (NEGATIVE); NITRITE,URINE NEGATIVE (NEGATIVE); PROTEIN,URINE NEGATIVE (NEGATIVE); URINE SPECIFIC GRAVITY 1.021; UROBILINOGEN,URINE NEGATIVE mg/dL (<2.0)
[2018-11-02 02:48] VITALS: BP 115/69
--- NOTE | 2018-11-02 21:29 | EKG REPORT ---
SEVERITY:- NORMAL ECG - SINUS RHYTHM : Confirmed by: Macey Aguayo MD 02-Nov-2018 21:29:24
== END 2018-11-02 03:07 | disposition home or self-care (01) ==
LOC: ER 20:00
DX: R10.13 Epigastric pain (principal); R07.9 Chest pain, unspecified; R11.0 Nausea; R73.03 Prediabetes; I10 Essential (primary) hypertension
CPT/HCPCS: 36415; 71045; 76705; 80053; 81001; 81025; 83690; 84484; 85025; 93005; 93010; 99285

== ENCOUNTER → 2019-03-27 | Outpatient (CLI) | payer BC ==
[2019-03-27 12:38] LABS: ABSOLUTE EOSINOPHILS # (AUTO) 0.6 10^3/uL (0.0-0.6); ABSOLUTE LYMPHOCYTES (AUTO) 1.8 10^3/uL (0.5-4.7); ABSOLUTE MONOCYTES (AUTO) 0.4 10^3/uL (0.1-1.4); ABSOLUTE NEUT (AUTO) 2.9 10^3/uL (1.7-8.2); BASOPHILS % (AUTO) 0.7 % (0-2); EOSINOPHILS % (AUTO) 10.3 % (0-6); HEMATOCRIT 40.6 % (36.0-47.0); HEMOGLOBIN 13.3 g/dL (12.0-15.5); LYMPHOCYTES % (AUTO) 31.4 % (13-45); MEAN CORPUSCULAR HEMOGLOBIN 25.8 pg (27.0-33.4); MEAN CORPUSCULAR HGB CONC 32.8 g/dL (32.0-36.0); MEAN CORPUSCULAR VOLUME 79 fl (80-97); MONOCYTES % (AUTO) 7.1 % (3-13); PLATELET COUNT 269 10^3/uL (150-450); RED BLOOD COUNT 5.17 10^6/uL (3.72-5.28); RED CELL DISTRIBUTION WIDTH 14.1 % (11.5-14.0); SEGMENTED NEUTROPHILS % (AUTO) 50.5 % (42-78); TOTAL CELLS COUNTED % (AUTO) 100 %; WHITE BLOOD COUNT 5.6 10^3/uL (4.0-10.5)
[2019-03-27 13:12] LABS: ALANINE AMINOTRANSFERASE 23 U/L (9-52); ALBUMIN 4.2 g/dL (3.5-5.0); ALKALINE PHOSPHATASE 87 U/L (38-126); ANION GAP 13 (5-19); ASPARTATE AMINO TRANSFERASE 24 U/L (14-36); BILIRUBIN,DIRECT 0.3 mg/dL (0.0-0.4); BILIRUBIN,TOTAL 0.4 mg/dL (0.2-1.3); BLOOD UREA NITROGEN 11 mg/dL (7-20); CALCIUM 9.6 mg/dL (8.4-10.2); CARBON DIOXIDE 28 mmol/L (22-30); CHLORIDE 104 mmol/L (98-107); GLUCOSE 82 mg/dL (75-110); POTASSIUM 4.2 mmol/L (3.6-5.0); SODIUM 144.5 mmol/L (137-145); TOTAL PROTEIN 7.8 g/dL (6.3-8.2)
[2019-03-28 11:38] LABS: HEPATITIS A AB IGM Negative (Negative); HEPATITIS B CORE AB IGM Negative (Negative); HEPATITS B SURFACE ANTIGEN Negative (Negative)
[2019-03-28 12:32] LABS: HEPATITIS C VIRUS ANTIBODY <0.1 s/co ratio (0.0-0.9)
== END ==
LOC: OD 11:33
PROVIDERS: ATTEND Nurse Practitioner Family
DX: Z11.3 Encounter for screening for infections with a predominantly sexual mode of transmission (principal); E03.9 Hypothyroidism, unspecified; E66.01 Morbid (severe) obesity due to excess calories; E87.6 Hypokalemia; I10 Essential (primary) hypertension; R73.03 Prediabetes; Z68.38 Body mass index [BMI] 38.0-38.9, adult
CPT/HCPCS: 36415; 80053; 80074; 83735; 84443; 85025; 86592; 86701

== ENCOUNTER 2019-04-02 13:48 | Emergency (ER) | payer BC ==
[2019-04-02 14:06] VITALS: BP 127/76
[2019-04-02] MEDS ORDERED: DIPHENHYDRAMINE HCL 50 MG CAPSULE PO ONE (14:12)
[2019-04-02] MEDS ORDERED: FAMOTIDINE 20 MG TABLET PO ONE (14:12)
--- NOTE | 2019-04-02 14:12 | ER Document Report ---
HPI - HPI Time Seen by Provider: 04/02/19 14:06 Pain Level: 4 Context: Patient is a 38-year-old female who presents the emergency department with a chief complaint of swollen feet. She states that her symptoms started yesterday. She was at a family reunion and was bit by ants and has had swelling since then. She also states that she has a history of hypertension. She was placed on amlodipine about 8 months ago and was also given Lasix. She was told to stop her Lasix, and she is unsure as to whether or not her swelling in her feet is due to that ant bites or due to her stopping her Lasix. - CONSTITUTIONAL Constitutional: DENIES: Fever, Chills - EENT EENT: DENIES: Sore Throat - NEURO Neurology: DENIES: Headache, Weakness - CARDIOVASCULAR Cardiovascular: DENIES: Chest pain - RESPIRATORY Respiratory: DENIES: Trouble Breathing, Coughing - GASTROINTESTINAL Gastrointestinal: DENIES: Abdominal Pain, Nausea, Patient vomiting - REPRODUCTIVE Reproductive: DENIES: : - MUSCULOSKELETAL Musculoskeletal: REPORTS: Extremity pain - Bilateral feet, Swelling - Bilateral feet - DERM Skin Color: Normal Skin Problems: Rash - Consistent with ant bites Past Medical History - Social History Smoking Status: Never Smoker Family History: CAD, DM, Hypertension, Thyroid Disfunction - Past Medical History Cardiac Medical History: Reports: Hx Hypertension - Borderline Denies: Hx Atrial Fibrillation, Hx Coronary Artery Disease, Hx DVT, Hx Pulmonary Embolism Pulmonary Medical History: Reports: Hx Asthma, Hx Tuberculosis Denies: Hx COPD Neurological Medical History: Denies: Hx Seizures Endocrine Medical History: Reports: Hx Diabetes Mellitus Type 2 - prediabetes, Hx Hypothyroidism. Denies: Hx Diabetes Mellitus Type 1, Hx Hyperthyroidism Renal/ Medical History: Reports: Hx Kidney Stones. Denies: Hx Peritoneal Dialysis GI Medical History: Reports: Hx Ulcer. Denies: Hx Cirrhosis, Hx Crohn's Disease, Hx Hepatitis, Hx Ulcerative Colitis Musculoskeletal Medical History: Denies Hx Arthritis, Denies Hx Gout Skin Medical History: Denies Hx Eczema, Denies Hx Psoriasis Infectious Medical History: Denies: Hx Hepatitis Past Surgical History: Reports: Hx Section - x1, Hx Gynecologic Surgery - D&C, ectopic , Hx Thyroid Surgery - Thyroidectomy, Other - D&C, ectopic - Immunizations Immunizations up to date: Yes Hx Diphtheria, Pertussis, Tetanus Vaccination: Yes Vertical Provider Document - CONSTITUTIONAL Agree With Documented VS: Yes Exam Limitations: No Limitations General Appearance: No Apparent Distress - INFECTION CONTROL TRAVEL OUTSIDE OF THE [place] IN LAST 30 DAYS: No - HEENT HEENT: Atraumatic, Normocephalic, PERRLA - NECK Neck: Normal Inspection - RESPIRATORY Respiratory: Breath Sounds Normal, No Respiratory Distress - CARDIOVASCULAR Cardiovascular: Regular Rate, Regular Rhythm Pulses: Normal: Radial, Posterior tibial, Dorsalis pedis - MUSCULOSKELETAL/EXTREMETIES Musculoskeletal/Extremeties: FROM, Non-Tender, Edema - Bilateral feet. negative: Eccymosis - NEURO Level of Consciousness: Awake, Alert, Appropriate Motor/Sensory: No Motor Deficit, No Sensory Deficit, No Pronator Drift - DERM Integumentary: Warm, Dry, Rash - Bilateral feet, consistent with ant bites Course - Re-evaluation Re-evalutation: 04/02/19 14:12 The patient will be treated for an allergic reaction in the emergency department. 04/02/19 15:15 Patient's swelling appears to have decreased with Pepcid and Benadryl. I have advised her to continue to use Pepcid and Benadryl for the next day. She has an appointment for tomorrow morning with her primary care provider. I have advised her that she needs to follow-up with them. I have also provided DIANA hose for her to wear during her shifts. She is in agreement with this plan and will wear DIANA hose. I do not suspect any life-threatening etiology at this time. Patient is nontoxic in appearance. Verbal discharge instructions were given to the p atient. They verbalized understanding. They are stable for discharge. - Vital Signs Vital signs: Temp Pulse Resp BP Pulse Ox 98.3 F 72 127/76 H 100 04/02/19 14:03 04/02/19 14:03 04/02/19 14:03 04/02/19 14:03 Discharge - Discharge Clinical Impression: Bilateral swelling of feet Allergic reaction Qualifiers: Encounter type: initial encounter Qualified Code(s): T78.40XA - Allergy, u nspecified, initial encounter Condition: Stable Disposition: HOME, SELF-CARE Additional Instructions: You are seen today in the emergency department for swelling in your feet. You were treated with Benadryl and Pepcid here in the emergency department. Please continue to take Benadryl 50 mg every 6 hours. Make sure you have someone drive for you if you are on Benadryl. Please also take Pepcid 20 mg twice a day for the next few days. Please keep your appointment tomorrow with your primary care provider. Prescriptions: Diphenhydramine HCl [Benadryl 50 mg Capsule] 1 cap PO Q6 PRN #10 capsule PRN Reason: Famotidine [Pepcid 20 mg Tablet] 20 mg PO BID #12 tablet Referrals: JACKSON KNIGHT FNP-C [NO LOCAL MD] - Follow up tomorrow
== END 2019-04-02 15:27 | disposition home or self-care (01) ==
LOC: ER 13:48
DX: T63.421A Toxic effect of venom of ants, accidental (unintentional), initial encounter (principal); M79.89 Other specified soft tissue disorders; J45.909 Unspecified asthma, uncomplicated; I10 Essential (primary) hypertension; Z79.899 Other long term (current) drug therapy
CPT/HCPCS: 99281

== ENCOUNTER 2019-06-10 10:13 | Emergency (ER) | payer BC ==
[2019-06-10 10:17] VITALS: BP 151/80
[2019-06-10] MEDS ORDERED: LIDOCAINE 2% VISCOUS SOLN 20 ML UDCUP PO ONE (10:21)
--- NOTE | 2019-06-10 10:27 | ER Document Report ---
HPI - HPI Time Seen by Provider: 06/10/19 10:20 Pain Level: 4 Notes: Patient is a 38-year-old female with history of hypertension who presents complaining of dental pain to #11 that began over the past day. Patient states that her crown is loose and she did notice some bleeding this morning. She has not noticed any bleeding right now. She is still able to eat and drink. She is urinating normally. Denies allergies to antibiotics. She has not noticed any swelling or abscess. Denies any headache, fever, head injury, neck pain, URI, sore throat, chest pain, palpitations, syncope, cough, shortness of breath, wheeze, dyspnea, abdominal pain, nausea/vomiting/diarrhea, urinary retention, dysuria, hematuria, or rash. - ROS Systems Reviewed and Negative: Yes All other systems reviewed and negative - REPRODUCTIVE Reproductive: DENIES: : Past Medical History - Social History Smoking Status: Unknown if Ever Smoked Family History: CAD, DM, Hypertension, Thyroid Disfunction - Past Medical History Cardiac Medical History: Reports: Hx Hypertension - Borderline Denies: Hx Atrial Fibrillation, Hx Coronary Artery Disease, Hx DVT, Hx Pulmonary Embolism Pulmonary Medical History: Reports: Hx Asthma, Hx Tuberculosis Denies: Hx COPD Neurological Medical History: Denies: Hx Seizures Endocrine Medical History: Reports: Hx Diabetes Mellitus Type 2 - prediabetes, Hx Hypothyroidism. Denies: Hx Diabetes Mellitus Type 1, Hx Hyperthyroidism Renal/ Medical History: Reports: Hx Kidney Stones. Denies: Hx Peritoneal Dialysis GI Medical History: Reports: Hx Ulcer. Denies: Hx Cirrhosis, Hx Crohn's Disease, Hx Hepatitis, Hx Ulcerative Colitis Musculoskeletal Medical History: Denies Hx Arthritis, Denies Hx Gout Skin Medical History: Denies Hx Eczema, Denies Hx Psoriasis Infectious Medical History: Denies: Hx Hepatitis Past Surgical History: Reports: Hx Section - x1, Hx Gynecologic Surgery - D&C, ectopic , Hx Thyroid Surgery - Thyroidectomy, Other - D&C, ectopic - Immunizations Immunizations up to date: Yes Hx Diphtheria, Pertussis, Tetanus Vaccination: Yes Vertical Provider Document - CONSTITUTIONAL Agree With Documented VS: Yes Notes: PHYSICAL EXAMINATION: GENERAL: Well-appearing, well-nourished and in no acute distress. HEAD: Atraumatic, normocephalic. EYES: Pupils equal round and reactive to light, extraocular movements intact, sclera anicteric, conjunctiva are normal. ENT: EAC clear b/l. TM's intact b/l without erythema, fluid, or perforation. Nares patent and without discharge. oropharynx clear without exudates. No tonsilar hypertrophy or erythema. Moist mucous membranes. No sinus tenderness. Uvula midline. No palatine shift. No tongue protrusion. No respiratory compromise. Mouth: + mild decay and mild gingivitis. No obvious abscess or discharge noted. No facial swelling. + tenderness to tooth #11 with loose crown noted. NECK: Normal range of motion, supple without lymphadenopathy. No rigidity/meningismus. LUNGS: Breath sounds clear to auscultation bilaterally and equal. No wheezes rales or rhonchi. HEART: Regular rate and rhythm without murmurs, rubs, gallops. NEUROLOGICAL: Cranial nerves grossly intact. Normal speech, normal gait. Normal sensory, motor exams PSYCH: Normal mood, normal affect. SKIN: Warm, Dry, normal turgor, no rashes or lesions noted. - INFECTION CONTROL TRAVEL OUTSIDE OF THE [place] IN LAST 30 DAYS: No Course - Re-evaluation Re-evalutation: 06/10/19 10:28 Patient is an afebrile, well-hydrated, 38-year-old female who presents to the ED with dental pain and loose crown to #11. Vitals are acceptable. PE is otherwise unremarkable. No I&D, labs, or imaging warranted at this time based on H&P. Viscous lidocaine dispensed today. I will send her home with a prescription for penicillin. Low suspicion for any meningitis, sepsis, peritonsillar/pharyngeal abscess, respiratory compromise, Bryson's, temporal arteritis, or other emergent systemic condition at this time. Patient is aware this condition can change from initial presentation and she needs to monitor symptoms closely. Conservative measures otherwise for symptoms. Call to schedu le an appointment with a dentist for further evaluation and management. Recheck with your PCM this week as well. Return to the ED with any worsening/concerning symptoms otherwise as reviewed in discharge. Patient is in agreement. - Vital Signs Vital signs: Temp Pulse Resp BP Pulse Ox 98.2 F 58 L 16 151/80 H 97 06/10/19 10:16 06/10/19 10:16 06/10/19 10:16 06/10/19 10:16 06/10/19 10:16 Discharge - Discharge Clinical Impression: Pain, dental Condition: Stable Disposition: HOME, SELF-CARE Instructions: Penicillin V K ([facility]) Additional Instructions: [place] and floss twice daily Maintain fluid intake Take antibiotics as directed Mouthwash, salt water gargles, peroxide rinse as needed Tylenol/ibuprofen as needed Recheck with PCM this week Call tomorrow and schedule an appointment with your dentist for further evaluation Return to the ED with any worsening symptoms and/or development of fever, headache, facial swelling, swelling of lips/tongue/throat, trouble swallowing, drooling, hoarseness, neck pain/stiffness, chest pain, palpitations, syncope, shortness of breath, trouble breathing, abdominal pain, n/v/d, numbness/tingling, or other worsening symptoms that are concerning to you. Prescriptions: Penicillin V Potassium [Penicillin Vk 250 mg Tablet] 500 mg PO BID #40 tablet Forms: Elevated Blood Pressure Referrals: KENNETH COLLINS MD [ACTIVE STAFF] - Follow up as needed
== END 2019-06-10 10:40 | disposition home or self-care (01) ==
LOC: ER 10:13
DX: K08.89 Other specified disorders of teeth and supporting structures (principal); I10 Essential (primary) hypertension; J45.909 Unspecified asthma, uncomplicated; E11.9 Type 2 diabetes mellitus without complications
CPT/HCPCS: 99282; J3490

== ENCOUNTER 2019-08-03 07:48 | Emergency (ER) | payer BC ==
[2019-08-03] MEDS ORDERED: LIDOCAINE 1% INJ-PF (10 MG/ML) 30 ML SDV INJ ONE (09:22)
--- NOTE | 2019-08-03 09:22 | ER Document Report ---
ED Skin Rash/Insect Bite/Abscs - General Chief Complaint: Abscess Stated Complaint: ABSCESS Time Seen by Provider: 08/03/19 09:18 Primary Care Provider: YAMIL ESCALONA DO [Primary Care Provider] - Follow up as needed Mode of Arrival: Ambulatory Information source: Patient TRAVEL OUTSIDE OF THE [place] IN LAST 30 DAYS: No - HPI Patient complains to provider of: Tender/swollen area - Pt. with 3 day h/o tender, swollen area in R axilla . Has had similar abscesses in the past which have been I and D'd. - Related Data Allergies/Adverse Reactions: meperidine HCl [From Demerol] Allergy (Intermediate, Verified 08/03/19 07:50) Hives Past Medical History - General Information source: Patient - Social History Smoking Status: Unknown if Ever Smoked Family History: CAD, DM, Hypertension, Thyroid Disfunction - Past Medical History Cardiac Medical History: Reports: Hx Hypertension - Borderline Denies: Hx Atrial Fibrillation, Hx Coronary Artery Disease, Hx DVT, Hx Pulmonary Embolism Pulmonary Medical History: Reports: Hx Asthma, Hx Tuberculosis Denies: Hx COPD Neurological Medical History: Denies: Hx Seizures Endocrine Medical History: Reports: Hx Diabetes Mellitus Type 2 - prediabetes, Hx Hypothyroidism. Denies: Hx Diabetes Mellitus Type 1, Hx Hyperthyroidism Renal/ Medical History: Reports: Hx Kidney Stones. Denies: Hx Peritoneal Dialysis GI Medical History: Reports: Hx Ulcer. Denies: Hx Cirrhosis, Hx Crohn's Disease, Hx Hepatitis, Hx Ulcerative Colitis Musculoskeletal Medical History: Denies Hx Arthritis, Denies Hx Gout Skin Medical History: Denies Hx Eczema, Denies Hx Psoriasis Infectious Medical History: Denies: Hx Hepatitis Past Surgical History: Reports: Hx Section - x1, Hx Gynecologic Surgery - D&C, ectopic , Hx Thyroid Surgery - Thyroidectomy, Other - D&C, ectopic - Immunizations Immunizations up to date: Yes Hx Diphtheria, Pertussis, Tetanus Vaccination: Yes Review of Systems - Review of Systems Constitutional: No symptoms reported EENT: No symptoms reported Cardiovascular: No symptoms reported Respiratory: No symptoms reported Skin: See HPI, Lesions -: Yes All other systems reviewed and negative Physical Exam - Vital signs Vitals: Temp Pulse Resp BP Pulse Ox 98.1 F 55 L 16 149/79 H 97 08/03/19 07:52 08/03/19 07:52 08/03/19 07:52 08/03/19 07:52 08/03/19 07:52 - General General appearance: Appears well In distress: None - Respiratory Respiratory status: No respiratory distress Breath sounds: Normal - Cardiovascular Rhythm: Regular Heart sounds: Normal auscultation - Skin Skin Temperature: Warm Skin irregularity: Tender indurated area - there is a 1 cm tender, non- erythemetous area with minimal fluctuence in the R axilla Course - Re-evaluation Re-evalutation: 08/03/19 10:06 pt tolerated I and D well. Expressed desire to go home - Vital Signs Vital signs: Temp Pulse Resp BP Pulse Ox 98.1 F 55 L 16 149/79 H 97 08/03/19 07:52 08/03/19 07:52 08/03/19 07:52 08/03/19 07:52 08/03/19 07:52 Procedures - Incision and Drainage Right Arm Time completed: 10:08 Type: Simple Anesthetic type: 1% Lidocaine mL's of anesthetic: 2 Blade size: 11 I&D procedure: Betadine prep applied, Iodoform packing placed Incision Method: Incision made by scalpel Amount/type of drainage: < 1 ml white pus Discharge - Discharge Clinical Impression: Abscess Condition: Stable Disposition: HOME, SELF-CARE Instructions: Abscess ([facility]), Post Incision and Drainage, Trimethoprim-Sulfa ([facility]) Additional Instructions: rest, take meds as prescribed, return if worse Prescriptions: Sulfamethoxazole/Trimethoprim [Bactrim Ds Tablet] 1 each PO BID #10 tablet Referrals: YAMIL ESCALONA DO [Primary Care Provider] - Follow up as needed
[2019-08-03 10:18] VITALS: BP 135/87
== END 2019-08-03 10:19 | disposition home or self-care (01) ==
LOC: ER 07:48
DX: L02.91 Cutaneous abscess, unspecified (principal); J45.909 Unspecified asthma, uncomplicated; Z88.5 Allergy status to narcotic agent
CPT/HCPCS: 99283; 10060; J3490

== ENCOUNTER → 2020-09-01 | Outpatient (CLI) | payer BC ==
--- NOTE | 2020-09-01 19:55 | EKG REPORT ---
SEVERITY:- NORMAL ECG - SINUS RHYTHM : Confirmed by: Angelito Milan 01-Sep-2020 19:55:02
== END ==
LOC: OD 11:41
PROVIDERS: ATTEND Nurse Practitioner Family
DX: R07.9 Chest pain, unspecified (principal)
CPT/HCPCS: 93005; 93010

== ENCOUNTER → 2020-11-12 | Outpatient (CLI) | payer BC ==
[~2020-11-12] MED LIST: COVID-19 VACCINE (PFIZER)/PF 30 MCG/0.3 ML VIAL IM ONE; EPINEPHRINE INJ/PF 1 MG/1 ML AMPULE IM PRN
== END ==
LOC: EMPHEALTH 15:02
PROVIDERS: ATTEND Internal Medicine
DX: Z23 Encounter for immunization (principal)
CPT/HCPCS: 91300

== ENCOUNTER 2020-11-14 13:34 | Emergency (ER) | payer BC ==
[2020-11-14] MEDS ORDERED: FAMOTIDINE 20 MG TABLET PO ONE (13:45)
[2020-11-14] MEDS ORDERED: DEXAMETHASONE SOD PHOS INJ 10 MG/1 ML VIAL IM ONE (13:45)
[2020-11-14] MEDS ORDERED: DIPHENHYDRAMINE HCL 25 MG CAPSULE PO ONE ×2 (13:45→15:58)
--- NOTE | 2020-11-14 13:46 | ER Document Report ---
ED General - General Chief Complaint: Lip Swelling Stated Complaint: LIP SWELLING Time Seen by Provider: 11/14/20 13:45 Primary Care Provider: JOHN CABRERA NP [Primary Care Provider] - Follow up as needed TRAVEL OUTSIDE OF THE [place] IN LAST 30 DAYS: No - HPI Notes: 40-year-old female presents to ED for evaluation of right-sided lower lip swelling starting earlier today. 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 Patient states that they gave her 125 mg Benadryl tablet and sent her down to the ER for evaluation. Patient states that she does not have a history of angioedema. She takes metoprolol for blood pressure management. Patient reports has been taking this medication for over a year without complaint. She does report that she started using a new N95 mask today. She worked for the entire case. Patient states she feels mildly short of breath however she is incredibly anxious and is concerned that the swelling will increase and she will have inability to breathe appropriately. Patient denies any chest pain or difficulties breathing or handling her secretions at this time. She is taken no other medications. She denies any other complaints. She denies any new soaps, detergents, or food currently. - Related Data Allergies/Adverse Reactions: meperidine HCl [From Demerol] Allergy (Intermediate, Verified 08/03/19 07:50) Hives Past Medical History - Social History Smoking Status: Never Smoker Family History: CAD, DM, Hypertension, Thyroid Disfunction - Past Medical History Cardiac Medical History: Reports: Hx Hypertension - Borderline Denies: Hx Atrial Fibrillation, Hx Coronary Artery Disease, Hx DVT, Hx Pulmonary Embolism Pulmonary Medical History: Reports: Hx Asthma, Hx Tuberculosis Denies: Hx COPD Neurological Medical History: Denies: Hx Seizures Endocrine Medical History: Reports: Hx Diabetes Mellitus Type 2 - prediabetes, Hx Hypothyroidism. Denies: Hx Diabetes Mellitus Type 1, Hx Hyperthyroidism Renal/ Medical History: Reports: Hx Kidney Stones. Denies: Hx Peritoneal Dialysis GI Medical History: Reports: Hx Ulcer. Denies: Hx Cirrhosis, Hx Crohn's Disease, Hx Hepatitis, Hx Ulcerative Colitis Musculoskeletal Medical History: Denies Hx Arthritis, Denies Hx Gout Skin Medical History: Denies Hx Eczema, Denies Hx Psoriasis Infectious Medical History: Denies: Hx Hepatitis Past Surgical History: Reports: Hx Section - x1, Hx Gynecologic Surgery - D&C, ectopic , Hx Thyroid Surgery - Thyroidectomy, Other - D&C, ectopic - Immunizations Immunizations up to date: Yes Hx Diphtheria, Pertussis, Tetanus Vaccination: Yes Review of Systems - Review of Systems Notes: Constitutional: Negative for fever. HENT: Negative for sore throat. Eyes: Negative for visual changes. Cardiovascular: Negative for chest pain. Respiratory: Negative for shortness of breath. Gastrointestinal: Negative for abdominal pain, vomiting or diarrhea. Genitourinary: Negative for dysuria. Musculoskeletal: Negative for back pain. Skin: Negative for rash. Facial swelling. Neurological: Negative for headaches, weakness or numbness. 10 point ROS negative except as marked above and in HPI. Physical Exam - Vital signs Vitals: Temp Pulse Resp BP Pulse Ox 98.4 F 108 H 20 150/98 H 99 11/14/20 13:35 11/14/20 13:35 11/14/20 13:35 11/14/20 13:35 11/14/20 13:35 General: No acute distress. Alert and oriented x3. Sitting comfortably in a stretcher. Skin: Intact without any jaundice, pallor, or erythema. Warm and dry. Swelling to right lower lip. No fluctuance. HEENT: Normocephalic, atraumatic. Pupils are equal round reactive to light and accommodation. Extraocular movements are intact. TMs without erythema or bulging. Canals are clear. Nares patent without any discharge. Teeth in good condition. Pharynx without erythema, edema, or exudates. No tonsillar enlargement. Uvula is midline. Airway is patent. Neck: Supple with no lymphadenopathy. Full range of motion. Heart: Regular rate and rhythm. S1,S2. No murmurs, rubs, or gallops. Lungs: Clear to ausculation bilaterally. No wheezes, rhonchi, rales. Equal chest expansion. No retractions. Abdomen: Soft, nontender to palpation, nondistended. Positive bowel sounds in all 4 quadrants. No hepatosplenomegaly. No masses. No CVA tenderness bilaterally. Neuro: GCS 15. Moving all extremities without discomfort. Psych: Mood and affect appropriate. Course - Re-evaluation Re-evalutation: 11/14/20 17:02 40-year-old female presents to ED for evaluation of right lower facial swelling starting earlier today. 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 Patient states that she has swelling that did not improve with benadryl. Arrival, patient has an intact airway without evidence of drooling or dyspnea. Patient does have swelling to the right lower lip. Patient was given an additional 50 mg of Benadryl as well as Pepcid 20 mg and 10 mg of IM Decadron. Patient was observed for roughly 1.5 hours with improvement in her swelling. Patient continues to maintain her airway without evidence of drooling or dyspnea. Patient states she feels improved at this time. I have noted that there is still a minor amount of swelling however this is vastly improved from her initial arrival. Patient will be continued on steroids as well as Benadryl and Pepcid. As it is Kat, I have sent the prescriptions and however she will be discharged with an additional 25 mg of Benadryl to take at home. She is advised to return if she develops any new or worsening symptoms. Understands these indications and is in agreement with care plan. - Vital Signs Vital signs: Temp Pulse Resp BP Pulse Ox 98.8 F 108 H 19 121/69 98 11/14/20 16:01 11/14/20 13:35 11/14/20 16:01 11/14/20 16:01 11/14/20 16:01 - Laboratory Results Critical Laboratory Results Reviewed: No Critical Results - Radiology Results Critical Radiology Results Reviewed: No Critical Results Discharge - Discharge Clinical Impression: Angioedema Qualifiers: Encounter type: initial encounter Qualified Code(s): T78.3XXA - Angioneurotic edema, initial encounter Condition: Stable Disposition: HOME, SELF-CARE Prescriptions: Prednisone [Deltasone 20 mg Tablet] 2 tab PO DAILY 5 Days #10 tablet Famotidine [Pepcid] 20 mg PO DAILY #7 tablet Forms: Return to Work Referrals: JOHN CABRERA, [employer] [Primary Care Provider] - Follow up as needed
[2020-11-14 16:07] VITALS: BP 121/69
== END 2020-11-14 16:15 | disposition home or self-care (01) ==
LOC: ER 13:34
DX: T78.3XXA Angioneurotic edema, initial encounter (principal); Y92.239 Unspecified place in hospital as the place of occurrence of the external cause; J45.909 Unspecified asthma, uncomplicated; R03.0 Elevated blood-pressure reading, without diagnosis of hypertension; Z79.899 Other long term (current) drug therapy; Z88.6 Allergy status to analgesic agent; Z88.5 Allergy status to narcotic agent
CPT/HCPCS: 99284; 96374; J1100

== ENCOUNTER → 2020-12-03 | Outpatient (CLI) | payer BC | LOC: EMPHEALTH 15:59 | PROVIDERS: ATTEND Internal Medicine | DX: Z23 Encounter for immunization (principal) | CPT/HCPCS: 91300 ==